=== PATIENT | female | born 1950 | race Caucasian/White ===

== ENCOUNTER 2017-11-03 08:15 | Emergency (ER) | payer OTHER, SELFPAY ==
[2017-11-03 08:17] VITALS: BP 161/122; PULSE 91; RESP 16; TEMP 37.1; O2SAT 95; BMI 29.5
--- NOTE | 2017-11-03 08:27 | CT_ITS ---
STUDY: CT ABDOMEN AND PELVIS WITHOUT CONTRAST REASON FOR EXAM: Female, 67 years old. 3 day history of right-sided abdominal pain with nausea and constipation. RADIATION DOSAGE (If Supplied By Facility): CTDIvol = ( 14.14 ) mGy, DLP = ( 681.78 ) mGycm TECHNIQUE: Transaxial images were obtained from the dome of the diaphragm to the symphysis pubis without oral contrast, and without intravenous contrast. Sagittal and coronal images were reconstructed. Individualized dose optimization techniques were used for this CT. COMPARISON: None. FINDINGS: The visualized lung bases are unremarkable. The visualized portions of the heart are within normal limits. There is a 1.1 cm cyst in the left lobe of the liver. 1 cm cyst is seen along the inferior lateral portion of the right lobe of the liver. Increased density is seen within the gallbladder lumen suggestive of a sludge or small gallstones. Normal spleen. Normal pancreas. There is a small, circumscribed, smooth, low attenuation left adrenal mass, consistent with an adrenal adenoma. Normal right adrenal gland. Normal right kidney. Normal left kidney. Normal visualized stomach. Normal small intestine. There are multiple colonic diverticula consistent with diverticulosis. The appendix is visualized and appears normal. There is diffuse atherosclerotic calcification of the abdominal aorta, without a demonstrated aneurysm. Normal inferior vena cava. Normal retroperitoneum. Normal urinary bladder. There is evidence of a bilateral tubal ligation. Normal abdominal wall. There are mild degenerative changes of the visualized lumbar spine. CT/Abdomen/Pelvis without Cont IMPRESSION: Findings suggestive of sludge or several small gallstones along the dependent portion of the gallbladder lumen. Electronically Signed: Humberto Palma MD at 9:45 EDT Tel [phone], Service support ,
--- NOTE | 2017-11-03 08:28 | EKG12_ITS ---
Test Reason : ABD PAIN Blood Pressure : / mmHG Vent. Rate : 096 BPM Atrial Rate : 192 BPM P-R Int : 000 ms QRS Dur : 070 ms QT Int : 350 ms P-R-T Axes : 000 001 -54 degrees QTc Int : 442 ms Atrial fibrillation Nonspecific ST and T wave abnormality Abnormal ECG Confirmed by PATEL HIGGINBOTHAM ([id number]), news video editor XIMENA WOOD ([id number]) on 11/07/2017 1:49:02 PM Referred By: JEANNE Confirmed By:PATEL HIGGINBOTHAM
[2017-11-03] MEDS: 0.9% Normal Saline 1,000 ML 125 ML IV (08:44)
[2017-11-03] MEDS: Ondansetron 4 MG/2 ML Vial IV (08:44)
[2017-11-03 08:58] LABS: Absolute Lymphocyte Count 2.22 X10^3/ul (0.83-4.51); Absolute Neutrophil Count 6.5 X10^3/uL (2.0-7.7); Basophil# 0.02 X10^3/uL; Basophil% 0.2 % (0-1); Eosinophil# 0.06 X10^3/uL; Eosinophils% 0.6 % (0-5); Hematocrit 49.8 % (37-47); Hemoglobin 17.2 g/dl (12.0-15.0); Lymphocyte # 2.22 X10^3/ul (4.0); Lymphocyte % 22.8 % (19-41); Mean Corp Hgb Conc 34.5 g/gl (32-36); Mean Corpuscular Hgb 32.3 pg (27.0-32.0); Mean Corpuscular Volume 93.4 fL (81-99); Mean Platelet Vol. 9.8 fl (6.2-12.0); Monocyte# 0.86 X10^3/uL; Monocyte% 8.8 % (0-10); Neutrophil # 6.53 X10^3/uL (2.7-7.7); Neutrophil % 67.3 % (47-70); Platelet Count 216 K/mm3 (150-450); RBC Distribution Width SD 47.2 fl (35.1-43.9); Red Blood Count 5.33 M/mm3 (4.2-5.4); White Blood Count 9.7 K/mm3 (4.4-11.0)
[2017-11-03 09:08] LABS: POSITIVE COUNT NO; POSITIVE DIFFERENTIAL NO; POSITIVE MORPHOLOGY NO
[2017-11-03 09:19] LABS: ALB/GLOB Ratio 1.2 RATIO (0.9-2.4); AST(SGOT) 11 U/L (15-37); Alanine Aminotransfer ALT/SGPT 15 U/L (13-56); Albumin, Serum 4.2 g/dL (3.2-5.0); Alkaline Phosphatase 95 U/L (45-117); Anion Gap 11 (5-15); BUN 15 mg/dL (7-18); BUN/Creat Ratio 17.2 RATIO (10-20); Calcium,Total 9.6 mg/dL (8.5-10.1); Chloride 104 mmol/L (98-107); Creatinine, Serum 0.87 mg/dL (0.55-1.02); EST Glomerular Filtration Rate 69 mL/min (>60); Est Glom Filt Rate - Afr Amer 84 mL/min (>60); Estimated Creatinine Clearance 59.55 ml/min; Globulin 3.4 g/dL (2.2-4.2); Glucose 102 mg/dL (74-106); Lipase 64 U/L (73-393); Potassium 3.6 mmol/L (3.5-5.1); Protein, Total 7.6 g/dL (6.4-8.2); Sodium Level 139 mmol/L (136-145)
[2017-11-03 09:22] LABS: Lactic Acid 1.7 mmol/L (0.4-2.0)
[2017-11-03 09:47] LABS: Bacteria 0 SEEN /hpf (None Seen); Mucous, Urine 0 SEEN /hpf (<or=2+); White Blood Cells 0 SEEN /hpf (0-5)
[2017-11-03 09:52] LABS: Color, Urine Yellow (Yellow); Glucose, Dipstick Normal (Normal); Ketone-Dipstick 15 mg/dl (Negative); Leukocyte Esterase-Dipstick Negative /ul (Negative); Nitrite-Dipstick Negative (Negative); Occult Blood-Urine 10 /ul (Negative); Protein-Dipstick 15 mg/dl (Negative); Specific Gravity, Urine 1.015 (1.002-1.030); Urine Bilirubin Dipstick Negative (Negative); Urine Clarity Sl. Cloudy (Clear); Urine Urobilinogen Normal (Normal)
[2017-11-03 10:00] LABS: Red Blood Cells-Urine 0-5 SEEN /hpf (0-5); Squamous Epithelial Cells - UA 0-5 SEEN /hpf (5-10)
--- NOTE | 2017-11-03 10:30 | ED.DCSUM_ITS ---
- ER Visit Summary Date of Service: 11/03/17 Chief Complaint: [Abdominal pain] History of Present Illness: The patient is a 67 F [presents to the emergency department chief complaint of abdominal pain ?4 days. Patient states that discomforts been continuous and currently rates it about a 5 out of 10. Patient had some mild nausea today but no vomiting. Patient states she has not had a bowel movement in about a week. Patient denies any fevers. She denies any blood in her stool or black tarry stool. Patient denies any urinary symptoms. Patient states that at times feels like the pain is in her back.] Physical Examination: [HEENT-PERRLA, EOMI. Cranial nerves II through XII grossly intact. TMs clear. Mucous membranes moist. No adenopathy. Cardiovascular-regular rate and rhythm without murmur or ectopy Lungs-clear to auscultation, chest wall stable without crepitus or subcu emphysema Abdomen-normoactive bowel sounds, soft. Minimal discomfort to the right side of the abdomen. There is no rebound, rigidity, or peritoneal signs. Patient has a negative Duncan sign. Extremities-intact ?4, normal range of motion, normal pulses, atraumatic] Test Results: [CBC with differential obtained showed a white count of 9.7, heme globin 17, hematocrit 50, platelets 216. Chemistries were normal. Liver enzymes were normal. Lipase was normal. Urinalysis was unremarkable. Troponin was less than 0.02. EKG obtained showed atrial fibrillation with a ventricular rate of [address] scan of the abdomen pelvis showed sludge in the gallbladder and an adrenal adenoma otherwise nothing acute.] She had noted sludge in the gallbladder and possible gallstones but no other signs of cholecystitis. Given the patient is not tender in the right upper quadrant I do not feel she has cholecystitis. Emergency Department Course and Treatment: [Patient was medicated with morphine and Zofran.]. Treatment Plan: [Patient will be given a prescription for Bentyl and magnesium citrate.] Patient advised to follow-up with her primary care physician regarding her A. fib. Patient states that she is well aware of her atrial fibrillation and risk of stroke potentially and has been without any medications to treat this. Patient is advised to speak with her primary care physician more regarding this. Disposition: [Discharged to home in stable condition]. Patient advised to return if worsening pain, fever, vomiting, or condition should worsen in any way. Impression: [Abdominal pain-etiology uncertain Constipation] This note was generated with [employer] dictation software. It may contain incorrect words, spelling, and punctuation that were not noted in review of the chart prior to signing ED Disposition - Plan for ED Patient: Chief Complaint: Abd Pain Referrals: Vladimir Gómez MD [Primary Care Provider] -
--- NOTE | 2017-11-03 10:30 | ED.DEP ---
ED Disposition - Plan for ED Patient: Chief Complaint: Abd Pain Instructions: ED Abdominal Pain Unkn Cause, ED Constipation Prescriptions: Dicyclomine HCl [Bentyl] 20 mg PO TIDAC #20 cap Referrals: Vladimir Gómez MD [Primary Care Provider] - 3-5 Days
[2017-11-03 10:32] VITALS: BP 178/106; PULSE 87; RESP 12; O2SAT 97
[2017-11-03] MEDS: Magnesium Citrate 300 ML PO (10:39)
--- NOTE | 2017-11-03 10:40 | ED.RN ---
DR ANGEL AWARE OF PT BP. OKAY TO CONTINUE WITH D/C. THIS NURSE REVIEWED D/C INSTRUCTIONS WITH PT. PT VERBALIZED UNDERSTANDING OF INSTRUCTIONS. IV D/C. IV CATHETER INTACT. PT TOLERATED WELL. PT DENIES FURTHER NEEDS OR QUESTIONS AT THIS TIME.
== END 2017-11-03 10:41 | disposition home or self-care (01) ==
PROVIDERS: Emergency Provider Emergency Medicine; Family Provider Family Medicine; PCP Family Medicine
DX: R10.9 Unspecified abdominal pain (principal); K59.00 Constipation, unspecified; I48.91 Unspecified atrial fibrillation; I10 Essential (primary) hypertension; K82.9 Disease of gallbladder, unspecified; D35.00 Benign neoplasm of unspecified adrenal gland; Z72.0 Tobacco use
CPT/HCPCS: 74176; 80053; 81001; 83605; 83690; 84484; 85025; 93005; 96361; 96374; 96375; 99283; J7030; A4216; J2405

== ENCOUNTER 2017-12-19 08:58 | Inpatient (IN) | payer OTHER, SELFPAY ==
[2017-12-19] VITALS (14 sets, daily range): BP systolic 137–197; BP diastolic 77–112; PULSE 65–93; RESP 11–19; TEMP 36.4–37.1; O2SAT 95–99; BMI 30.1; BMI 30.3
[2017-12-19 09:06] LABS: Bedside Glucose 102 mg/dL (70-110)
--- NOTE | 2017-12-19 09:14 | EKG12_ITS ---
Test Reason : NEURO S/SX Blood Pressure : / mmHG Vent. Rate : 089 BPM Atrial Rate : 117 BPM P-R Int : 000 ms QRS Dur : 072 ms QT Int : 378 ms P-R-T Axes : 000 008 -08 degrees QTc Int : 459 ms Atrial fibrillation Abnormal ECG Confirmed by [place] ARSHAD, SHEA ([id number]), features editor XIMENA WOOD ([id number]) on 12/21/2017 9:03:37 AM Referred By: OSVALDO Confirmed By:SHEA BERNARDO MD
--- NOTE | 2017-12-19 09:14 | CT_ITS ---
STUDY: CT BRAIN WITHOUT CONTRAST REASON FOR EXAM: Female, 67 years old. Right arm numbness since this morning RADIATION DOSAGE (If Supplied By Facility): CTDIvol = ( 44.99 ) mGy, DLP = ( 745.49 ) mGycm TECHNIQUE: Transaxial CT imaging of the brain was performed without administration of intravenous contrast material. Individualized dose optimization techniques were used for this CT. COMPARISON: None. FINDINGS: Normal soft tissue structures. Normal calvarium. There is mild cerebral atrophy with widening of the extra-axial spaces and ventricular dilatation. Normal white matter tracts of the cerebral hemispheres. Normal basal ganglia and thalami. Normal brainstem. Normal cerebellum. There is no intracranial hemorrhage. There are no findings of an acute ischemic infarction. There is mucoperiosteal inflammatory disease of the paranasal sinuses consistent with mild chronic sinusitis. CT/Brain/Head without Contrast IMPRESSION: Chronic involutional changes of the brain. No acute hemorrhage Paranasal sinusitis Electronically Signed: Abad Templeton MD at 9:48 EDT , Service support ,
[2017-12-19 09:23] LABS: Basophil# 0.04 X10^3/uL; Basophil% 0.4 % (0-1); Eosinophil# 0.23 X10^3/uL; Eosinophils% 2.5 % (0-5); Hematocrit 44.6 % (37-47); Hemoglobin 15.1 g/dl (12.0-15.0); Lymphocyte % 20.9 % (19-41); Mean Corp Hgb Conc 33.9 g/gl (32-36); Mean Corpuscular Hgb 32.8 pg (27.0-32.0); Mean Corpuscular Volume 96.7 fL (81-99); Mean Platelet Vol. 9.6 fl (6.2-12.0); Monocyte% 9.9 % (0-10); Neutrophil # 5.97 X10^3/uL (2.7-7.7); Neutrophil % 65.9 % (47-70); Platelet Count 240 K/mm3 (150-450); RBC Distribution Width CV 14.4 % (11.6-14.6); RBC Distribution Width SD 50.1 fl (35.1-43.9); Red Blood Count 4.61 M/mm3 (4.2-5.4); White Blood Count 9.1 K/mm3 (4.4-11.0)
[2017-12-19 09:24] LABS: POSITIVE COUNT NO; POSITIVE DIFFERENTIAL NO; POSITIVE MORPHOLOGY NO
--- NOTE | 2017-12-19 09:28 | RAD_ITS ---
STUDY: X-RAY CHEST REASON FOR EXAM: Female, 67 years old. Right arm numbness TECHNIQUE: Single AP portable view of the chest. COMPARISON: None. FINDINGS: Cardiac monitoring leads overlie the chest. The lungs are clear and expanded. There is no demonstrated pleural abnormality. Normal size heart. Normal mediastinum and marsha. Normal visualized pulmonary arteries. There is atherosclerotic tortuosity of the aortic arch and descending thoracic aorta. Normal visualized thoracic spine. Normal visualized ribs, clavicles, and shoulders. There is no demonstrated abnormality of the visualized soft tissue structures of the upper abdomen. RAD/Chest 1 View IMPRESSION: Normal x-ray examination of the chest. Electronically Signed: Derek Paige DO at 9:48 EDT Tel , Service support ,
[2017-12-19 09:40] LABS: Partial Thromboplast Time 34.5 Seconds (24.1-36.2)
[2017-12-19 09:47] LABS: Anion Gap 5 (5-15); BUN 13 mg/dL (7-18); BUN/Creat Ratio 14.5 RATIO (10-20); Calcium,Total 8.5 mg/dL (8.5-10.1); Chloride 108 mmol/L (98-107); EST Glomerular Filtration Rate 67 mL/min (>60); Est Glom Filt Rate - Afr Amer 81 mL/min (>60); Estimated Creatinine Clearance 59.79 ml/min; Glucose 96 mg/dL (74-106); Potassium 3.8 mmol/L (3.5-5.1); Sodium Level 141 mmol/L (136-145)
--- NOTE | 2017-12-19 10:19 | PCM.HP.STD ---
Problem List (1) Right upper extremity numbness Status: Acute (2) Chronic atrial fibrillation Status: Chronic History of Present Illness Date of Admission: 12/19/17 Chief Complaint: Right-sided upper extremity numbness and weakness- 1day The patient is a 67 year old F with PMHx of atrial fibrillation, was on Coumadin but took off of it( she was following with Dr. Cohn), hypertension who comes in with complaints of sudden onset of right-sided numbness and weakness which started today. Patient was in a usual state of health until this morning when she went away, started headaches and attempted to take something for headaches when she noticed that she has sudden onset right-sided weakness with numbness. She denied any dizziness or palpitation no nausea or vomiting or diaphoresis. Patient was very anxious and tearful at time of history taking. She denied any chest pain or leg swelling. Vitals in the ED was stable for uncontrolled blood pressure; 195/112. Admitting blood work was unremarkable. 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 Dyspnea Respiratory: Denies: Cough, Hemoptysis, Shortness of breath at rest, Shortness of breath upon exertion, Sputum production Gastrointestinal: Denies: Abdominal Pain, Hematemesis, Hematochezia, Nausea, Vomiting Genitourinary: Denies: Dysuria, Frequency Gynecological: Denies: Breast symptoms, Excessively long or heavy periods Musculoskeletal: Denies: Joint Pain, Joint stiffness, Joint swelling, Joint Tenderness Skin: Denies: Rash, Wounds Neurological: Reports: Focal weakness, Numbness, Tingling Psychiatric: Denies: Anxiety, Depression, Homicidal Ideations, Suicidal Ideations Endocrine: Denies: Change in Body Habitus, Heat/ Cold Intolerance Hematologic/ Lymphatic: Denies: Easy Bruising, Easy Bleeding VTE Information - Inpt Only VTE Present on Admission: No VTE Pharm Prophylaxis ordered?: Yes Patient Problems: Active and Suspected Problems Right upper extremity numbness (Acute) - Physical Exam General: Alert, Oriented x3, Cooperative HEENT: Atraumatic, PERRLA, EOMI, Normocephalic Neck: Supple, No JVD, Negative Carotid Bruits Lungs: Clear to auscultation, Normal air movement Cardiovascular: Regular rate, No murmurs Abdomen: Bowel Sounds Present, Soft, Non Tender Extremities: No edema, Capillary Refill Less than 3 Seconds Skin: No rashes, No breakdown Musculoskeletal: No Tenderness to Palpation of Joints or Extremities Neurological: Cranial nerves II-XII grossly intact Psych/Mental Status: Normal Affect, Appropriate Vital Signs Temp Pulse Resp BP Pulse Ox 97.6 F L 78 11 L 165/100 H 96 12/19/17 08:59 12/19/17 10:16 12/19/17 10:16 12/19/17 10:16 12/19/17 10:16 Oxygen Delivery Method Room Air Weight: 87.1 kg Body Mass Index (BMI) 30.0 Finger Stick Blood Glucose 102 Laboratory Tests Past 24 Hrs 12/19/17 12/19/17 12/19/17 09:10 09:10 09:10 WBC 9.1 RBC 4.61 Hgb 15.1 H Hct 44.6 MCV 96.7 MCH 32.8 H MCHC 33.9 RDW 14.4 RDW Differential 50.1 H Plt Count 240 MPV 9.6 Immature Gran % (Auto) 0.400 Neut % (Auto) 65.9 Lymph % (Auto) 20.9 [place] % (Auto) 9.9 Eos % (Auto) 2.5 Baso % (Auto) 0.4 Absolute Neuts (auto) 6.0 Absolute Lymphs (auto) 1.90 Total Counted Not Reportable PT 13.0 INR 1.0 APTT 34.5 Sodium 141 Potassium 3.8 Chloride 108 H Carbon Dioxide 28.0 Anion Gap 5 BUN 13 Creatinine 0.90 Estim Creat Clear Calc 59.79 Est GFR (MDRD) Af Amer 81 Est GFR (MDRD) Non-Af 67 BUN/Creatinine Ratio 14.5 Glucose 96 Calcium 8.5 Troponin I < 0.02 POC Glucose 12/19/17 09:01 POC Glucose 102 Assessment/Plan Active and Suspected Problems Right upper extremity numbness (Acute) 67 year old F with PMHx of chronic atrial fibrillation, was on Coumadin but took off of it, hypertension who comes in with complaints of sudden onset of right-sided numbness and weakness which started today. 1. Right-sided extremity weakness and numbness, concerning for possible TIAs/CVA, history of chronic atrial fibrillation, on any medication Plan: Admit to PCU, observation, neurology consult, aspirin 81 mg p.o. daily, 2D echo, MRI of the brain, MRA of the head and neck, fasting lipid profile, HbA1c 2. Chronic A. fib, CHADS-VASC2 score of 3, rate-controlled, not on any medications, will start on Lovenox therapeutic dosing, 2D echo, if there is no valvular abnormalities, will put patient on Eliquis and arrange for follow-up with cardiology. 3. Hypertension, blood pressures now controlled, will allow permissive hypertension until MRI results in detail control with beta-violeta and/or ACEI. 4. DVT prophylaxis with Lovenox subcu Code Visit OBSV E&M: 35199 Initial observation care L3
--- NOTE | 2017-12-19 10:20 | ED.VISSUMM ---
- ER Visit Summary Date of Service: 12/19/17 Chief Complaint: Right arm weakness and numbness History of Present Illness: The patient is a 61 F who reports right arm weakness and numbness. Symptoms began 1 hour prior to presentation. She states that her right arm felt numb and she was unable to lift it normally. No history of prior similar symptoms. No weakness or paresthesias in the other extremities and no speech or visual changes. She denies any recent illness. She does have a history of atrial fibrillation and was previously anticoagulated but is noncompliant with medications. Physical Examination: Initial blood pressure 197/106 vitals otherwise unremarkable NIH stroke scale is 0 she has normal strength and sensation no ataxia no focal or lateralizing neurological deficits at the time of my examination Heart is irregularly irregular but normal rate Lungs are clear Abdomen soft Alert and oriented Test Results: EKG shows atrial fibrillation at a rate of 89. CT of the head shows chronic changes. Chest x-ray is normal. CBC BMP coagulation studies and troponin all unremarkable. Emergency Department Course and Treatment: Patient's NIH stroke scale was 0. She continues to complain of some paresthesias in the right arm but has normal sensation light touch. She was discussed with the hospitalist and will be admitted for further workup. Treatment Plan: [] Disposition: Admit Impression: Transient ischemic attack Atrial fibrillation This note was generated with [employer] dictation software. It may contain incorrect words, spelling, and punctuation that were not noted in review of the chart prior to signing ED Disposition - Plan for ED Patient: Chief Complaint: Neuro S/Sx Referrals: Vladimir Gómez MD [Primary Care Provider] -
--- NOTE | 2017-12-19 10:56 | MRI_ITS ---
STUDY: MRA NECK WITHOUT CONTRAST REASON FOR EXAM: Female, 67 years old. Numbness and tingling right arm TECHNIQUE: Source images were obtained, MIPs were performed. The study was performed unenhanced. Motion limited exam. COMPARISON: None. FINDINGS: RIGHT CAROTID ARTERIES: Normal right common carotid artery (CCA). Normal right common carotid bulb. There is moderate atherosclerotic plaque formation of the origin of the right internal carotid artery with an estimated stenosis of 50-69% stenosis. Normal visualized cervical portion of the right internal carotid artery. Normal origin of the right external carotid artery (ECA). LEFT CAROTID ARTERIES: Normal left common carotid artery (CCA). Normal left common carotid bulb. Normal origin of the left internal carotid (ICA) artery without a hemodynamically significant stenosis. Normal visualized cervical portion of the left internal carotid artery. Normal origin of the left external carotid artery (ECA). VERTEBRAL ARTERIES: Normal antegrade flow within the bilateral vertebral artery without a hemodynamically significant stenosis. IMPRESSION: Motion limited exam. Probable moderate stenosis proximal right ICA. Flow defects noted within the bulbs bilaterally. Follow-up CTA would be helpful. Electronically Signed: Truman Peralta MD at 16:12 EDT , Service support , MRI/MRA Neck without Contrast
--- NOTE | 2017-12-19 10:56 | MRI_ITS ---
STUDY: MRI BRAIN WITHOUT CONTRAST REASON FOR EXAM: Female, 67 years old. Numbness tingling right arm TECHNIQUE: Standardized multiplanar fat and water weighted pulse sequences were obtained. COMPARISON: CT brain December 19, 2017 FINDINGS: There is mild cerebral atrophy with widening of the extra-axial spaces and ventricular dilatation. There are a limited number of small white matter hyperintensities, distributed throughout the deep white matter tracts of the cerebral hemispheres, consistent with mild chronic white matter ischemic changes. Gyriform cytotoxic edema left parietal cortex. Remote lacunar infarct left putamen. Normal thalami. There is no extra-axial fluid accumulation. Normal flow voids within the major intracranial circulation suggesting patency by spin echo criteria. There is enlargement of the sella turcica with increased CSF within the sella and flattening of the pituitary gland consistent with an empty sellar syndrome. Normal infundibular stalk, hypothalamus, and optic chiasm. Normal tectal plate and pineal gland. Normal midbrain, jigar and medulla. Normal cerebellum. Normal basal cisterns. Normal bilateral temporal bones. Normal bilateral internal auditory canals. No demonstrated orbital abnormality, within the constraints of a routine brain study. Air-fluid level right maxillary sinus and mucosal thickening on the left. Normal calvarium and skull base. Normal visualized soft tissue structures. Normal visualized upper cervical spine. MRI/Brain without Contrast IMPRESSION: Acute infarct left parietal lobe Electronically Signed: Truman Peralta MD at 19:13 EDT , Service support ,
--- NOTE | 2017-12-19 10:56 | MRI_ITS ---
STUDY: MRA OF THE HEAD WITHOUT CONTRAST REASON FOR EXAM: Female, 67 years old. CVA and numbness right arm TECHNIQUE: 3-D [id number] (TOF) imaging was performed with MIPs. The study was performed unenhanced. Motion limited exam. COMPARISON: MR brain December 19, 2017 FINDINGS: Normal bilateral petrous carotid arteries. Normal right cavernous carotid artery with a normal supraclinoid bifurcation. Normal left cavernous carotid artery with a normal supraclinoid bifurcation. Normal right A1 segments of the anterior cerebral artery. Normal left A1 segments of the anterior cerebral artery. Normal intact anterior communicating artery (ACOM). Normal bilateral A2 segments of the anterior cerebral arteries. Normal right M1 and M2 segments of the middle cerebral arteries, with a normal M1 bifurcation. Normal left M1 and M2 segments of the middle cerebral arteries, with a normal M1 bifurcation. Normal right posterior communicating artery (PCOM). Normal left posterior communicating artery (PCOM). Normal bilateral vertebral arteries. Normal basilar artery with a normal basilar bifurcation. The visualized bilateral superior cerebellar (SCA) arteries are normal. Normal bilateral P1, P2 and visualized P3 segments of the posterior cerebral arteries. There is no demonstrated aneurysm of the [place]. There is no major vessel occlusion or hemodynamically significant stenosis. There is no demonstrated abnormality of the visualized brain. IMPRESSION: Motion limited exam but grossly Normal MRA of the head Electronically Signed: Truman Peralta MD at 19:21 EDT , Service support , MRI/MRA Head ONLY without Contrast
--- NOTE | 2017-12-19 12:21 | ECHOD_ITS ---
Reason For Study: AFIB/FLUTTER Procedure This was a 2D Doppler, Color Flow transthoracic echocardiogram. The exam was of adequate technical quality. Exam performed portable in patient room. Left Ventricle Normal LV size. Left ventricular systolic function is normal. The estimated ejection fraction is 65 %. Unable to assess diastolic dysfunction. No regional wall motion abnormalities noted. Right Ventricle Normal RV size. Normal systolic function. Atria The left atrium is severely enlarged. Normal right atrium. No doppler evidence for ASD. Mitral Valve There is no mitral annular calcification. Normal mitral valve. Mild (1+) mitral valve insufficiency. Tricuspid Valve Normal tricuspid valve. Mild tricuspid valve insufficiency. Right ventricular systolic pressure estimated to be 22 mmHg. Aortic Valve Trisinus/trileaflet aortic valve. Normal aortic valve. Pulmonic Valve The pulmonic valve is not well visualized. Trivial pulmonic valve insufficiency. Great Vessels Normal sized aortic root. Pericardium/Pleural No pericardial effusion. MMode/2D Measurements & Calculations LVIDd: 4.7 cm IVSd: 1.3 cm Ao root diam: 3.3 cm LVIDs: 3.4 cm LVPWd: 1.0 cm LA dimension: 3.7 cm RVDd: 3.0 cm FS: 27.9 % LAV(MOD-bp): 115.8 ml LA A4 area: 32.1 cm2 RA A4 area: 18.3 cm2 LAV(MOD-bp) Indexed: 59.6 ml/m2 LAV(MOD-sp2): 100.7 ml LAV(MOD-sp4): 126.1 ml Doppler Measurements & Calculations MV E max angelo: 85.8 cm/sec Ao V2 max: 124.5 cm/sec LV V1 max: 81.1 cm/sec Ao max P.2 mmHg LV V1 max P.6 mmHg PA V2 max: 60.4 cm/sec TR max angelo: 216.0 cm/sec TR max P.8 mmHg Interpretation Summary Left ventricular systolic function is normal. The estimated ejection fraction is 65 %. The left atrium is severely enlarged. Mild (1+) mitral valve insufficiency. Mild tricuspid valve insufficiency. Trivial pulmonic valve insufficiency. Right ventricular systolic pressure estimated to be 22 mmHg. Ordering Physician: Shena Adkins Referring Physician: Vladimir Gómez Performed By: Maria Luz Red, CARLOS, RVT
[2017-12-19 13:14] LABS: Hemoglobin A1c 5.6 % (4.2-6.3)
[2017-12-19] MEDS: Enoxaparin 100 MG/ML Syringe 90 MG SC ×2 (13:50→21:37)
[2017-12-19] MEDS: LORazepam 2 MG/ML Syringe 1 MG IV (15:53)
[2017-12-19] MEDS: Atorvastatin Calcium 40 MG Tablet PO (21:37)
[2017-12-20] VITALS (7 sets, daily range): BP systolic 159–162; BP diastolic 90–102; PULSE 59–87; RESP 16; TEMP 36.3–37.1; O2SAT 96–97; BMI 30.3
[2017-12-20 06:28] LABS: Hematocrit 43.1 % (37-47); Hemoglobin 14.7 g/dl (12.0-15.0); Mean Corp Hgb Conc 34.1 g/gl (32-36); Mean Corpuscular Hgb 32.6 pg (27.0-32.0); Mean Corpuscular Volume 95.6 fL (81-99); Platelet Count 225 K/mm3 (150-450); RBC Distribution Width CV 14.3 % (11.6-14.6); RBC Distribution Width SD 48.4 fl (35.1-43.9); Red Blood Count 4.51 M/mm3 (4.2-5.4); Scan Indicated on CBC? Y/N NO; White Blood Count 7.6 K/mm3 (4.4-11.0)
[2017-12-20 06:58] LABS: Anion Gap 8 (5-15); BUN 13 mg/dL (7-18); BUN/Creat Ratio 18.5 RATIO (10-20); Calcium,Total 8.4 mg/dL (8.5-10.1); Chloride 111 mmol/L (98-107); Cholesterol 179 mg/dL (200); EST Glomerular Filtration Rate 89 mL/min (>60); Est Glom Filt Rate - Afr Amer 107 mL/min (>60); Estimated Creatinine Clearance 51.81 ml/min; Glucose 88 mg/dL (74-106); High Density Lipoprotein 46 mg/dL; Potassium 3.5 mmol/L (3.5-5.1); Sodium Level 144 mmol/L (136-145); Triglycerides 75 mg/dL; Very Low Density Lipoprotein 15 mg/dL (5-40)
[2017-12-20] MEDS: Enoxaparin 100 MG/ML Syringe 90 MG SC (09:15)
[2017-12-20] MEDS: Aspirin 81 MG TAB.CHEW PO (09:15)
--- NOTE | 2017-12-20 10:59 | CASEMGMT ---
Face to Face with patient for initial transition planning/care coordination assessment. ELBERT GHOSH introduced self and role at [facility], pt voices understanding and consents to assessment at this time. Pt is sitting up in chair in no distress at this time. Pt is A/O x4 at this time and answers all questions appropriately at this time. Pt with very flat affect at this time and seems frustrated/angry. Referral to L[facility] FRANC[facility] at this time, voices understanding. Care providers, pharmacy, and demographics verified. See attached link. Pt voices no further concerns/needs at this time. Advised pt to ask for CM if any further questions/concerns/needs arise, voices understanding. CM to follow for any further discharge planning/needs. PLAN[place] ELBERT GHOSH
--- NOTE | 2017-12-20 11:11 | PCM.CONS.GEN ---
Reason for Consult Date of Consultation: 12/20/17 Reason for Consultation: right sided weakness History of Present Illness: The patient is a 67 year old right handed white female with history of afib, not on anticoagulation because she says they were inconvenient, approx 5-10 yrs ago, no history of bleeding. yesterday at 8 am she noticed right arm weakness and numbness, so she asked her to bring her to the hospital. no other weakness, no trouble with speech, vision, or swallowing. +tob. no asa. 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 pre admit h&p:The patient is a 67 year old F with PMHx of atrial fibrillation, was on Coumadin but took off of it( she was following with Dr. Cohn), hypertension who comes in with complaints of sudden onset of right-sided numbness and weakness which started today. Patient was in a usual state of health until this morning when she went away, started headaches and attempted to take something for headaches when she noticed that she has sudden onset right-sided weakness with numbness. She denied any dizziness or palpitation no nausea or vomiting or diaphoresis. Patient was very anxious and tearful at time of history taking. She denied any chest pain or leg swelling. Vitals in the ED was stable for uncontrolled blood pressure; 195/112. Admitting blood work was unremarkable. 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 Lives: Alone Smoking Status: Current every day smoker Tobacco Use: Cigarettes Alcohol: Occasional Drugs: None - *Family History Maternal History Items: Heart Disease Paternal History Items: No pertinent history Review of Systems Constitutional: Denies: Chills, Fever, Weight Change HEENT: Denies: Head Aches, Sinus Congestion, Sinus Drainage Cardiovascular: Denies: Chest Pain, Palpitations Respiratory: Denies: Cough, Shortness of breath at rest, Sputum production Gastrointestinal: Denies: Abdominal Pain, Nausea, Vomiting Genitourinary: Denies: Dysuria Musculoskeletal: Denies: Joint Pain, Joint Tenderness Skin: Denies: Rash, Wounds Neurological: Denies: Numbness, Tingling, Focal weakness Psychiatric: Denies: Anxiety, Depression, Homicidal Ideations, Suicidal Ideations Hematologic/ Lymphatic: Denies: Easy Bruising, Easy Bleeding Patient Problems: Active and Suspected Problems Right upper extremity numbness (Acute) - Physical Exam General: Alert, Oriented x3, Cooperative HEENT: Atraumatic, PERRLA, EOMI, Normocephalic Neck: Supple, No JVD, Negative Carotid Bruits Lungs: Clear to auscultation, Normal air movement Cardiovascular: Regular rate, No murmurs Abdomen: Bowel Sounds Present, Soft, Non Tender Extremities: No edema, Capillary Refill Less than 3 Seconds Skin: No rashes, No breakdown Musculoskeletal: No Tenderness to Palpation of Joints or Extremities Neurological: Cranial nerves II-XII grossly intact Psych/Mental Status: Normal Affect, Appropriate Vital Signs Temp Pulse Resp BP Pulse Ox 36.3 C L 70 16 161/98 H 96 12/20/17 09:18 12/20/17 09:18 12/20/17 09:18 12/20/17 09:18 12/20/17 09:18 Oxygen Delivery Method Room Air Weight: 85.2 kg Body Mass Index (BMI) 30.3 Intake and Output for Last 24 Hours 12/18/17 12/19/17 12/20/17 23:59 23:59 23:59 Intake Total 300 / 300 200 / 200 Balance 300 / 300 200 / 200 Laboratory Tests Past 24 Hrs 12/20/17 12/20/17 05:55 05:55 WBC 7.6 RBC 4.51 Hgb 14.7 Hct 43.1 MCV 95.6 MCH 32.6 H MCHC 34.1 RDW 14.3 RDW Differential 48.4 H Plt Count 225 MPV 10.0 Sodium 144 Potassium 3.5 Chloride 111 H Carbon Dioxide 25.0 Anion Gap 8 BUN 13 Creatinine 0.70 Estim Creat Clear Calc 51.81 Est GFR (MDRD) Af Amer 107 Est GFR (MDRD) Non-Af 89 BUN/Creatinine Ratio 18.5 Glucose 88 Calcium 8.4 L Triglycerides 75 Cholesterol 179 LDL Cholesterol 118 VLDL Cholesterol 15 HDL Cholesterol 46 Current Medications Generic Name Dose Route Start Last Admin Trade Name Freq PRN Reason Stop Dose Admin Aspirin 81 mg 12/20/17 08:00 12/20/17 09:15 Aspirin, Baby PO 81 mg DAILY@0800 LORI Administration Atorvastatin Calcium 40 mg 12/19/17 22:00 12/19/17 21:37 Lipitor PO 40 mg QHS LORI Administration Bisacodyl 5 mg 12/19/17 10:56 Dulcolax PO DAILY PRN PRN Constipation Enoxaparin Sodium 40 mg 12/20/17 10:00 Lovenox SC DAILY@1000 LORI Enoxaparin Sodium 90 mg 12/19/17 13:00 12/20/17 09:15 Lovenox SC 90 mg Q12 LORI Administration Magnesium Hydroxide 30 ml 12/19/17 10:56 Milk Of Magnesia PO DAILY PRN Constipation Metoprolol Succinate 12.5 mg 12/20/17 12:00 Toprol Xl (Beta Jean) PO DAILY LORI Nicotine 21 mg 12/20/17 10:00 12/20/17 09:15 Nicoderm Cq (Pbkc) TRANSDERM. Not Given DAILY [facility] Nicotine Polacrilex 2 mg 12/19/17 16:07 Rugby Nicotine (Bkc) PO Q2H PRN PRN Nicotine Craving Ondansetron HCl 4 mg 12/19/17 10:56 Zofran IV Q8H PRN PRN NAUSEA Psyllium Hydrophilic Mucilloid 1 packet 12/19/17 10:56 Metamucil PO DAILY PRN PRN CONSTIPATION Sodium Chloride 5 - 30 ml 12/19/17 12:11 IV UD PRN SALINE FLUSH mri brain reviewed, acute infarct in posterior aspect of left mca distribution. no significant stenosis on mra Assessment/Plan Active and Suspected Problems Right upper extremity numbness (Acute) acute left mca infarct, chronic afib not on anticoag recently per pt preference restart oac, eliquis dc tob monitor bp, rx as op if remains hi outpt psg
--- NOTE | 2017-12-20 11:22 | CON.PCM_ITS ---
Reason for Consult Date of Consultation: 12/20/17 Reason for Consultation: right sided weakness History of Present Illness: The patient is a 67 year old right handed white female with history of afib, not on anticoagulation because she says they were inconvenient, approx 5-10 yrs ago, no history of bleeding. yesterday at 8 am she noticed right arm weakness and numbness, so she asked her to bring her to the hospital. no other weakness, no trouble with speech, vision, or swallowing. +tob. no asa. 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 pre admit h&p:The patient is a 67 year old F with PMHx of atrial fibrillation, was on Coumadin but took off of it( she was following with Dr. Cohn), hypertension who comes in with complaints of sudden onset of right-sided numbness and weakness which started today. Patient was in a usual state of health until this morning when she went away, started headaches and attempted to take something for headaches when she noticed that she has sudden onset right -sided weakness with numbness. She denied any dizziness or palpitation no nausea or vomiting or diaphoresis. Patient was very anxious and tearful at time of history taking. She denied any chest pain or leg swelling. Vitals in the ED was stable for uncontrolled blood pressure; 195/112. Admitting blood work was unremarkable. CT scan of the head was negative Past Medical History Past Medical History (Chronic Problems): Chronic Problems Chronic atrial fibrillation (Chronic) Allergies Iodinated Contrast- Oral and IV Dye [CONTRASTS] Allergy (Verified 12/19/17 09:01 ) Shortness of breath Surgical History: total knee arthroplasty - bilateral Psychiatric History: No pertinent psych hx [employer] MANAGER History: No pertinent [employer] F[employer] MANAGER history Lives: Alone Smoking Status: Current every day smoker Tobacco Use: Cigarettes Alcohol: Occasional Drugs: None - *Family History Maternal History Items: Heart Disease Paternal History Items: No pertinent history Review of Systems Constitutional: Denies: Chills, Fever, Weight Change HEENT: Denies: Head Aches, Sinus Congestion, Sinus Drainage Cardiovascular: Denies: Chest Pain, Palpitations Respiratory: Denies: Cough, Shortness of breath at rest, Sputum production Gastrointestinal: Denies: Abdominal Pain, Nausea, Vomiting Genitourinary: Denies: Dysuria Musculoskeletal: Denies: Joint Pain, Joint Tenderness Skin: Denies: Rash, Wounds Neurological: Denies: Numbness, Tingling, Focal weakness Psychiatric: Denies: Anxiety, Depression, Homicidal Ideations, Suicidal Ideations Hematologic/ Lymphatic: Denies: Easy Bruising, Easy Bleeding Patient Problems: Active and Suspected Problems Right upper extremity numbness (Acute) - Physical Exam General: Alert, Oriented x3, Cooperative HEENT: Atraumatic, PERRLA, EOMI, Normocephalic Neck: Supple, No JVD, Negative Carotid Bruits Lungs: Clear to auscultation, Normal air movement Cardiovascular: Regular rate, No murmurs Abdomen: Bowel Sounds Present, Soft, Non Tender Extremities: No edema, Capillary Refill Less than 3 Seconds Skin: No rashes, No breakdown Musculoskeletal: No Tenderness to Palpation of Joints or Extremities Neurological: Cranial nerves II-XII grossly intact Psych/Mental Status: Normal Affect, Appropriate Vital Signs Temp Pulse Resp BP Pulse Ox 36.3 C L 70 16 161/98 H 96 12/20/17 09:18 12/20/17 09:18 12/20/17 09:18 12/20/17 09:18 12/20/17 09:18 Oxygen Delivery Method Room Air Weight: 85.2 kg Body Mass Index (BMI) 30.3 Intake and Output for Last 24 Hours 12/18/17 12/19/17 12/20/17 23:59 23:59 23:59 Intake Total 300 / 300 200 / 200 Balance 300 / 300 200 / 200 Laboratory Tests Past 24 Hrs 12/20/17 12/20/17 05:55 05:55 WBC 7.6 RBC 4.51 Hgb 14.7 Hct 43.1 MCV 95.6 MCH 32.6 H MCHC 34.1 RDW 14.3 RDW Differential 48.4 H Plt Count 225 MPV 10.0 Sodium 144 Potassium 3.5 Chloride 111 H Carbon Dioxide 25.0 Anion Gap 8 BUN 13 Creatinine 0.70 Estim Creat Clear Calc 51.81 Est GFR (MDRD) Af Amer 107 Est GFR (MDRD) Non-Af 89 BUN/Creatinine Ratio 18.5 Glucose 88 Calcium 8.4 L Triglycerides 75 Cholesterol 179 LDL Cholesterol 118 VLDL Cholesterol 15 HDL Cholesterol 46 Current Medications Generic Name Dose Route Start Last Admin Trade Name Freq PRN Reason Stop Dose Admin Aspirin 81 mg 12/20/17 08:00 12/20/17 09:15 Aspirin, Baby PO 81 mg DAILY@0800 LORI Administration Atorvastatin Calcium 40 mg 12/19/17 22:00 12/19/17 21:37 Lipitor PO 40 mg QHS LORI Administration Bisacodyl 5 mg 12/19/17 10:56 Dulcolax PO DAILY PRN PRN Constipation Enoxaparin Sodium 40 mg 12/20/17 10:00 Lovenox SC DAILY@1000 LORI Enoxaparin Sodium 90 mg 12/19/17 13:00 12/20/17 09:15 Lovenox SC 90 mg Q12 LORI Administration Magnesium Hydroxide 30 ml 12/19/17 10:56 Milk Of Magnesia PO DAILY PRN Constipation Metoprolol Succinate 12.5 mg 12/20/17 12:00 Toprol Xl (Beta Jean) PO DAILY LORI Nicotine 21 mg 12/20/17 10:00 12/20/17 09:15 Nicoderm Cq (Pbkc) TRANSDERM. Not Given DAILY [facility] Nicotine Polacrilex 2 mg 12/19/17 16:07 Rugby Nicotine (Bkc) PO Q2H PRN PRN Nicotine Craving Ondansetron HCl 4 mg 12/19/17 10:56 Zofran IV Q8H PRN PRN NAUSEA Psyllium Hydrophilic Mucilloid 1 packet 12/19/17 10:56 Metamucil PO DAILY PRN PRN CONSTIPATION Sodium Chloride 5 - 30 ml 12/19/17 12:11 IV UD PRN SALINE FLUSH mri brain reviewed, acute infarct in posterior aspect of left mca distribution. no significant stenosis on mra Assessment/Plan Active and Suspected Problems Right upper extremity numbness (Acute) acute left mca infarct, chronic afib not on anticoag recently per pt preference * restart oac, eliquis * dc tob * monitor bp, rx as op if remains hi * outpt psg
[2017-12-20] MEDS: Metoprolol(XL)Succ 25 MG Tablet 12.5 MG PO (11:40)
--- NOTE | 2017-12-20 11:58 | DCINST_ITS ---
- Discharge Diagnoses Current Active Problems: Current Active and Chronic Problems Right upper extremity numbness (Acute) Chronic atrial fibrillation (Chronic) Reason(s) for Visit for Discharge Instructions: Right upper extremity numbness and weakness You will use the following diet at home:: Cardiac Your food should be the consistency of: Regular Your liquids should be the consistency of: Regular/Thin Discharge Activity: Return to Normal Activity Allergies/Adverse Reactions: Allergies Iodinated Contrast- Oral and IV Dye [CONTRASTS] Allergy (Verified 12/19/17 09:01 ) Shortness of breath Medications to take at Discharge Atorvastatin Calcium [Lipitor] 40 mg PO QHS #30 tab 12/20/17 Metoprolol(XL)Succ [Toprol Xl (Beta Jean)] 12.5 mg PO DAILY #30 tab 12/20/17 Nicotine Polacrilex [Nicotine Gum] 2 mg PO Q2H PRN PRN #60 gum 12/20/17 Nicotine [Nicoderm Cq] 21 mg TRANSDERM. DAILY #30 patch 12/20/17 The following prescriptions were given: Nicotine Polacrilex [Nicotine Gum] 2 mg PO Q2H PRN PRN #60 gum PRN Reason: Nicotine Craving Atorvastatin Calcium [Lipitor] 40 mg PO QHS #30 tab Metoprolol(XL)Succ [Toprol Xl (Beta Jean)] 12.5 mg PO DAILY #30 tab Nicotine [Nicoderm Cq] 21 mg TRANSDERM. DAILY #30 patch Primary Care Physician: Vladimir Gómez MD [Primary Care Provider] - Please follow up with your Primary Care Physician in: within 2 weeks Please Follow Up With: Eddi Keita MD When: within 2 weeks Please Follow Up With: Thiago Mosher MD When: within 2 weeks Proposed Discharge Date: 12/20/17
--- NOTE | 2017-12-20 11:59 | PCM.DC.SUM ---
Discharge Date and Diagnosis Date of Admission: 12/19/17 - Primary Discharge Diagnosis Active and Suspected Problems Right upper extremity numbness (Acute) - Secondary Discharge Diagnosis Chronic Problems Chronic atrial fibrillation (Chronic) Hospital Course and Treatment Imaging Results: Clinical Impression(s) from Imaging Studies Brain CT 12/19/17 09:14 IMPRESSION: Chronic involutional changes of the brain. No acute hemorrhage Paranasal sinusitis Electronically Signed: Abad Templeton MD at 9:48 EDT , Service support , Chest X-Ray 12/19/17 09:28 IMPRESSION: Normal x-ray examination of the chest. Electronically Signed: Derek Paige DO at 9:48 EDT Tel , Service support , Brain MRI 12/19/17 10:56 IMPRESSION: Acute infarct left parietal lobe Electronically Signed: Truman Peralta MD at 19:13 EDT , Service support , Head MRA 12/19/17 10:56 Neck MRA 12/19/17 10:56 Neurology Summary of Care Provided: 67 year old F with PMHx of chronic atrial fibrillation, was on Coumadin but took herself off of it, hypertension who comes in with complaints of sudden onset of right-sided numbness and weakness which started today. 1. Right-sided extremity weakness and numbness secondary to acute left parietal lobe ischemia, neurology consulted, seen on MRI head, MRA head was normal, MRA neck showed moderate stenosis of the proximal right ICA. 2. Chronic A. fib, CHADS-VASC2 score of 3, rate-controlled,on Xarelto, patient to follow-up with cardiology in 2 weeks. 3. Hypertension, blood pressures were not well controlled, was allowing for permissive hypertension, started on metoprolol XL, asked to take her blood pressure every day, follow-up with cardiology and primary care doctor in the outpatient. 4. Nicotine use disorder, recommended to stop smoking, discharged on nicotine replacement Discharge Activity: Return to Normal Activity Home Medications: Medications to take at Discharge Atorvastatin Calcium [Lipitor] 40 mg PO QHS #30 tab 12/20/17 Metoprolol(XL)Succ [Toprol Xl (Beta Jean)] 12.5 mg PO DAILY #30 tab 12/20/17 Nicotine Polacrilex [Nicotine Gum] 2 mg PO Q2H PRN PRN #60 gum 12/20/17 Nicotine [Nicoderm Cq] 21 mg TRANSDERM. DAILY #30 patch 12/20/17 Rivaroxaban [Xarelto] 20 mg PO DAILY #30 tab 12/20/17 Sertraline HCl [Zoloft] 12.5 mg PO DAILY #30 tab 12/20/17 Following Prescrptions Were Given to Patient: Nicotine Polacrilex [Nicotine Gum] 2 mg PO Q2H PRN PRN #60 gum PRN Reason: Nicotine Craving Atorvastatin Calcium [Lipitor] 40 mg PO QHS #30 tab Metoprolol(XL)Succ [Toprol Xl (Beta Jean)] 12.5 mg PO DAILY #30 tab Nicotine [Nicoderm Cq] 21 mg TRANSDERM. DAILY #30 patch Rivaroxaban [Xarelto] 20 mg PO DAILY #30 tab Sertraline HCl [Zoloft] 12.5 mg PO DAILY #30 tab Primary Care Physician: Vladimir Gómez MD [Primary Care Provider] - Please follow up with your Primary Care Physician in: within 2 weeks Please Follow Up With: Eddi Keita MD When: within 2 weeks Please Follow Up With: Tihago Mosher MD When: within 2 weeks Disposition: Home Minutes spent on discharge:: 45 Medical Necessity - Tobacco Use Smoking Status: Current every day smoker Tobacco Use: Cigarettes Meaningful Use Info Meaningful Use Diagnoses (Choose all that apply): Ischemic CVA - CVA Therapy Assessed for PT,OT and/or ST?: Yes - Ischemic Stroke Antithrombotic order at d/c?: Yes Dx of Atrial fib/flutter?: Yes Anticoagulant at discharge?: Yes Statins at discharge?: Yes Primary Dx Acute Ischemic CVA?: Yes IV tPA ordered during stay?: No Reason IV t-PA not ordered: Treatment not Indicated Code Visit Inpatient E&M: 39133 Disch Hosp
--- NOTE | 2017-12-20 13:07 | CASEMGMT ---
TITO met with patient as she just had a Stroke and per staff she has been quite tearful. Patient was alone in her room. She was somewhat open with [facility]IT[facility] and willing to talk. She told SW about her job and that she has been there for 20 years. She said their won't be any problems with her being able to return to work. She really enjoys her job. She plans on trying to quit smoking. TITO told her about the Stroke Support Group and she was open to taking information. Her then walked in. TITO did give patient information on [facility] Stroke Support Group and local counseling agencies. Binta HICKEY MSW
--- NOTE | 2017-12-20 13:45 | CASEMGMT ---
Per Dr. Adkins, pt to be sent home on Xarelto and script e-scribed to [facility]. Call to [facility] and per sarahy, co-pay is $124.01 at this time but she is unable to tell this RN CM if this is all deductible at this time. Advised [facility] that this RN CM would be giving pt a $10 co-pay card to activate and bring with her, voice understanding. Pt updated on all and aware to activate co-pay card and take to pharmacy. Also advised pt that if part of $124 is deductible then she may have to pay that before co-pay card will kick in, voices understanding. Concha RN CM
== END 2017-12-20 14:30 | disposition home or self-care (01) | DRG 65 ==
LOC: ED 10:24 → PCU 10:25
PROVIDERS: Admitting Provider Internal Medicine; Emergency Provider Emergency Medicine; Family Provider Family Medicine; PCP Family Medicine; Visit Provider Internal Medicine
DX: I63.512 Cerebral infarction due to unspecified occlusion or stenosis of left middle cerebral artery (principal); G81.91 Hemiplegia, unspecified affecting right dominant side; I48.2 Chronic atrial fibrillation; I10 Essential (primary) hypertension; F17.210 Nicotine dependence, cigarettes, uncomplicated; Z96.653 Presence of artificial knee joint, bilateral; Z79.01 Long term (current) use of anticoagulants; Z79.899 Other long term (current) drug therapy; Z91.14 Patient's other noncompliance with medication regimen
CPT/HCPCS: 36415; 70450; 70544; 70547; 70551; 71045; 80048; 80061; 82962; 83036; 84484; 85025; 85027; 85610; 85730; 93005; 93306; 97110; 97162; 97165; 99285; 99406; Q9957; A4216

== ENCOUNTER 2020-02-20 14:35 | Inpatient (IN) | payer MEDICARE, SELFPAY ==
[2019-06-22 10:27] VITALS: BMI 30.3
[2020-02-20] VITALS (13 sets, daily range): BP systolic 112–156; BP diastolic 70–129; PULSE 62–84; RESP 15–25; TEMP 36.3–36.8; O2SAT 95–100; BMI 33.1; BMI 31.5
--- NOTE | 2020-02-20 14:41 | EKG12_ITS ---
Test Reason : UNRE Blood Pressure : / mmHG Vent. Rate : 065 BPM Atrial Rate : 394 BPM P-R Int : 000 ms QRS Dur : 074 ms QT Int : 434 ms P-R-T Axes : 000 005 -37 degrees QTc Int : 451 ms Atrial fibrillation T wave abnormality, consider inferior ischemia Abnormal ECG Confirmed by PATEL HIGGINBOTHAM ([id number]), general expeditor GARY BACON ([id number]) on 02/25/2020 2:13:49 PM Referred By: SHANTHI Confirmed By:PATEL HIGGINBOTHAM
--- NOTE | 2020-02-20 14:41 | CT_ITS ---
STUDY: CTA HEAD AND NECK WITH CONTRAST REASON FOR EXAM: Female, 69 years old. STROKE RADIATION DOSAGE (If Supplied By Facility): CTDIvol = ( 34.99 ) mGy, DLP = ( 1483.49 ) mGycm TECHNIQUE: CT angiography was performed with a multi-detector CT scanner. Data acquisition was obtained from the skull base through the vertex following intravenous administration of Isovue 370 100ml. MIP images were reconstructed from the axial data set. Post-processing of the angiographic images was performed, with multiplanar reformation and 3D reconstruction. Individualized dose optimization techniques were used for this CT. COMPARISON: No relevant priors. FINDINGS: Normal bilateral petrous carotid arteries. There is calcified plaque formation of the right cavernous carotid artery, without a cross-sectional luminal stenosis. There is calcified plaque formation of the left cavernous carotid artery, without a cross-sectional luminal stenosis. Normal right A1 segments of the anterior cerebral artery. Normal left A1 segments of the anterior cerebral artery. Normal intact anterior communicating artery (ACOM). Normal bilateral A2 segments of the anterior cerebral arteries. Normal right M1 and M2 segments of the middle cerebral arteries, with a normal M1 bifurcation. Normal left M1 and M2 segments of the middle cerebral arteries, with a normal M1 bifurcation. Normal right posterior communicating artery (PCOM). Normal left posterior communicating artery (PCOM). Normal bilateral vertebral arteries. Normal basilar artery with a normal basilar bifurcation. The visualized bilateral superior cerebellar (SCA) arteries are normal. Normal bilateral P1, P2 and visualized P3 segments of the posterior cerebral arteries. There is no demonstrated aneurysm of the koi of [place]. There is no demonstrated abnormality of the visualized brain. AORTIC ARCH: There is atherosclerotic calcific plaque formation of the aortic arch and great vessels arising from the aortic arch, without a hemodynamically significant stenosis. There is a normal origin of the brachiocephalic, left common carotid, and left subclavian arteries. RIGHT CAROTID ARTERIES: Normal right common carotid artery (CCA). Normal right common carotid bulb. There is moderate atherosclerotic plaque formation of the origin of the right internal carotid artery with an estimated stenosis of 50-69% stenosis. Normal visualized cervical portion of the right internal carotid artery. Normal origin of the right external carotid artery (ECA). LEFT CAROTID ARTERIES: Normal left common carotid artery (CCA). Normal left common carotid bulb. There is mild atherosclerotic plaque formation of the origin of the left internal carotid artery with less than 50% cross sectional diameter stenosis. Normal visualized cervical portion of the left internal carotid artery. Normal origin of the left external carotid artery (ECA). VERTEBRAL ARTERIES: Normal bilateral vertebral arteries. CT/CTA Head AND Neck W/ Contrast IMPRESSION: Calcific plaque at the origins of both the right and left internal carotid arteries causing 50-69% stenosis on the right and less than 50% stenosis on the left. N.B. : The above information has been verbally conveyed by Humberto Palma to Dr Sky DO, on 02/20/2020 14:59:51 (ET). Electronically Signed: Humberto Palma, at 15:02 EDT , Service support ,
--- NOTE | 2020-02-20 14:41 | CM.ED ---
Social Work Responding to stroke alert. No family present. Per EMS daughter was at the house and might be on the way to the hospital. Patient is currently speaking with doctor. Will continue to follow. Aleah ANDRADE, EDELMIRA
--- NOTE | 2020-02-20 14:55 | CM.ED ---
Social Work Collaborating with nursing staff. This social work specialist to call patient daughter. No daughter listed on chart. Attempted to call patient spouse, Barron. Patient daughter, Nitza ([phone]) answered the phone. Per Nitza Barron is also on the way to the hospital. Nitza has young children and is waiting on [id number] and then will come to the hospital. Nitza reports no known medical history of patient other then that patient was to go to a Doctors appointment with Dr. Gómez today. Nitza states to be at the hospital within the next 30min. Aleah ANDRADE, EDELMIRA
[2020-02-20 15:01] LABS: Absolute Lymphocyte Count 1.88 X10^3/uL (0.83-4.51); Absolute Neutrophil Count 4.8 X10^3/uL (2.0-7.7); Basophil# 0.05 X10^3/uL; Basophil% 0.7 % (0-1); Eosinophil# 0.16 X10^3/uL; Eosinophils% 2.1 % (0-5); Hematocrit 37.9 % (37-47); Hemoglobin 12.1 g/dL (12.0-15.0); Lymphocyte # 1.88 X10^3/ul (4.0); Lymphocyte % 24.9 % (19-41); Mean Corp Hgb Conc 31.9 g/dL (32-36); Mean Corpuscular Hgb 31.1 pg (27.0-32.0); Mean Corpuscular Volume 97.4 fL (81-99); Mean Platelet Vol. 10.6 fl (6.2-12.0); Monocyte# 0.66 X10^3/uL; Monocyte% 8.8 % (0-10); NRBC Flagged by Analyzer 0 % (0-5); Neutrophil # 4.75 X10^3/uL (2.7-7.7); Platelet Count 185 K/mm3 (150-450); RBC Distribution Width CV 14.7 % (11.6-14.6); RBC Distribution Width SD 53.1 fl (35.1-43.9); Red Blood Count 3.89 M/mm3 (4.2-5.4); White Blood Count 7.5 K/mm3 (4.4-11.0)
--- NOTE | 2020-02-20 15:02 | ED.DCSUM_ITS ---
- ER Visit Summary Date of Service: 02/20/20 Chief Complaint: Altered mental status History of Present Illness: The patient is a 69 F who presents with altered mental status that began today. Patient was last known to be well was 0930 today. Patient got in her car with her grandchild and turned the car on and the air conditioner was running. The car remained in park. Patient was going to her doctor appointment today. When the patient did not show up for her appointment, the office staff called the patient's daughter who went to check on her and found her unresponsive in the car. Prehospital stroke alert was called. Patient was having garbled speech and generalized weakness. Physical Examination: Vital signs are stable. Patient is afebrile. Patient is confused. Patient does not answer questions. Patient does respond to painful stimuli. Oral mucosa is pink and moist. Neck is supple. Trachea is midline. There is no JVD. Heart was irregularly irregular. Lungs are clear and equal bilaterally. Abdomen is soft. Bowel sounds are normal. There is no apparent tenderness. Pupils are equal, round, and reactive to light bilaterally. Extraocular muscles are grossly intact. There is no appreciable facial weakness. Patient is able to lift her arms against gravity and hold them up. Patient is unable to hold up her lower extremities. Test Results: CT scan of the brain was obtained. There is no acute intracranial abnormality. CTA of the brain was obtained. There is no large vessel occlusion. There is some stenosis of approximately 50-69% on the right and less than 50% on the left. This was interpreted by the radiologist and reviewed by myself. Portable chest x-ray was obtained. There is no acute cardiopulmonary process. This was interpreted by the radiologist and myself. EKG showed atrial fibrillation with a rate of 65. There is some T wave inversion in leads III and aVF. This was unchanged compared to previous EKG dated 12/19/2017. CBC was within normal limits. Basic metabolic profile was essentially within normal limits. PT with INR and PTT were normal. Troponin was normal. Lactate was normal. Carboxyhemoglobin was drawn and was slightly elevated at 5.1. However the patient is a smoker. Urine tox screen is positive for opiates and benzodiazepines. Emergency Department Course and Treatment: Patient was monitored here in the emergency department. Patient began moving her lower extremities. Patient was also attempting to pull out her IVs. Patient was starting to act more agitated but more awake. Patient was still not able to carry on a conversation and understand. Case was discussed with the hospitalist. She will admit the patient to her service to ICU. Family understands and is agreeable with the plan. All questions were answered. Disposition: Admit to ICU Impression: 1. Altered mental status Critical care time: 45 minutes. This was time spent obtaining history from daughter and EMS, performing physical exam, interpreting results, initiating treatment, discussion with consultants, and determining disposition. This note was generated with [employer] dictation software. It may contain incorrect words, spelling, and punctuation that were not noted in review of the chart prior to signing ED Disposition - Plan for ED Patient: Disposition: Acute Care Hospital [facility] Diagnosis: Altered mental status Referrals: Vladimir Gómez MD [Primary Care Provider] -
[2020-02-20 15:05] LABS: International Normalized Ratio 1.3
[2020-02-20 15:06] LABS: Partial Thromboplast Time 30.2 Seconds (24.1-36.2)
--- NOTE | 2020-02-20 15:08 | RAD_ITS ---
STUDY: X-RAY CHEST REASON FOR EXAM: Female, 69 years old. FOUND UNRESPONSIVE TECHNIQUE: Single AP portable view of the chest. COMPARISON: Comparison is made with prior study dated December 19, 2017. FINDINGS: EKG electrodes are seen. The lungs are clear and expanded. There is no demonstrated pleural abnormality. There is mild cardiac enlargement. Normal mediastinum and marsha. Normal visualized pulmonary arteries. There is atherosclerotic calcification of the aortic arch with tortuosity. There are diffuse degenerative changes of the visualized thoracic spine. Normal visualized ribs, clavicles, and shoulders. There is no demonstrated abnormality of the visualized soft tissue structures of the upper abdomen. RAD/Chest 1 View IMPRESSION: Mild cardiomegaly. Electronically Signed: Humberto Palma, at 15:25 EDT , Service support ,
--- NOTE | 2020-02-20 15:19 | ED.RN ---
STROKE SCALE CANCELED, DUE TO NEUROLOGIST AND ED DR THINKING PT'S CONDITION IS NOT STROKE RELATED.
[2020-02-20] MEDS: 0.9% Normal Saline 1,000 ML 1000 ML IV (15:22)
[2020-02-20] MEDS: Naloxone 2 MG/2 ML Syringe IV (15:25)
[2020-02-20 15:31] LABS: Anion Gap 6 (5-15); BUN 21 mg/dL (7-18); BUN/Creat Ratio 29.5 RATIO (10-20); Calcium,Total 7.7 mg/dL (8.5-10.1); Chloride 106 mmol/L (98-107); Creatinine, Serum 0.71 mg/dL (0.55-1.02); EST Glomerular Filtration Rate 87 mL/min (>60); Est Glom Filt Rate - Afr Amer 105 mL/min (>60); Glucose 109 mg/dL (74-106); Potassium 4.3 mmol/L (3.5-5.1); Sodium Level 139 mmol/L (136-145)
[2020-02-20 15:47] LABS: Bacteria 0 SEEN /hpf (None Seen); Mucous, Urine 0 SEEN /hpf (<or=2+); Red Blood Cells-Urine 0 SEEN /hpf (0-5); Squamous Epithelial Cells - UA 0 SEEN /hpf (5-10); White Blood Cells 0 SEEN /hpf (0-5)
[2020-02-20 15:50] LABS: Color, Urine Yellow (Yellow); Glucose, Dipstick Normal (Normal); Ketone-Dipstick Negative (Negative); Leukocyte Esterase-Dipstick Negative /ul (Negative); Nitrite-Dipstick Negative (Negative); Occult Blood-Urine 25 /ul (Negative); Protein-Dipstick 15 mg/dl (Negative); Urine Bilirubin Dipstick Negative (Negative); Urine Clarity Clear (Clear); Urine Urobilinogen Normal (Normal)
[2020-02-20 15:52] LABS: Carboxyhemoglobin Frac (CO) 5.1 % (0.0-1.5)
[2020-02-20 15:53] LABS: Alcohol, Blood (Medical)-Serum < 3.0 mg/dL
[2020-02-20 16:18] LABS: Amphetamine Urine VISTA NEGATIVE (<1000 ng/mL); Barbiturate Urine VISTA NEGATIVE (< 200 ng/mL); Benzodiazepine Urine VISTA POSITIVE (< 200 ng/mL); Cocaine Urine VISTA NEGATIVE (< 300 ng/mL); Ecstacy Urine VISTA NEGATIVE (< 500 ng/mL); Methadone Urine VISTA NEGATIVE (< 300 ng/mL); PCP Urine VISTA NEGATIVE (< 25 ng/mL); THC Urine VISTA NEGATIVE (< 50 ng/mL); Vista UDS pH Range 6
--- NOTE | 2020-02-20 17:15 | NURSING ---
[address] ALTERED MENTAL STATUS
--- NOTE | 2020-02-20 17:27 | HP.PCM_ITS ---
<Harmeet Sloan - Last Filed: 02/20/20 17:27> Problem List (1) Toxic encephalopathy Status: Acute (2) Benzodiazepine abuse Status: Acute (3) Opiate abuse, episodic Status: Acute (4) Nicotine abuse Status: Chronic (5) Chronic atrial fibrillation Status: Chronic History of Present Illness Date of Admission: 02/20/20 Chief Complaint: altered mental status The patient is a 69 year old F with pmhx of stroke, nicotine abuse, chronic Afib, HTN, who presented to the ER with c/o altered mental status. The patient was found by her daughter passed out in her car with the patients grandchild in the car. The car was running but the ac was on and reportedly the child is in ok condition. She was slurring her words and not forming coherent thoughts, not following commands. The daughter than asked for help as the patient's was upstairs and had fallen and was not responsive. A separate squad brought him to the hospital. EMS was called and felt that with her slurring and weakness she may have stroke so she was brought to the ER with a stroke alert called. She had a negative CT brain but her tox screen was + for opiates and benzos. She remains confused and not answering questions. On my exam she lays unresponsive then wakes up and fights with her soft restraints, says incoherent words, then falls back onto the bed asleep. She did not answer any of my questions. Daughter is not present at this time.[] Past Medical History Past Medical History (Chronic Problems): Chronic Problems Chronic atrial fibrillation (Chronic) Nicotine abuse (Chronic) Allergies Iodinated Contrast Media [CONTRASTS] Allergy (Verified 12/19/17 09:01) Shortness of breath Home Medications: Ambulatory Orders Medication Instructions Recorded Atorvastatin Calcium [Lipitor] 40 mg PO QHS 02/20/20 Metoprolol(XL)Succ [Toprol Xl 12.5 mg PO DAILY 02/20/20 (Beta Jean)] Sertraline HCl [Zoloft] 12.5 mg PO DAILY 02/20/20 Warfarin Sodium [Coumadin] 5 mg PO DAILY 02/20/20 Surgical History: total knee arthroplasty Psychiatric History: No pertinent psych hx DENTAL TREATMENT COORDINATOR 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: No pertinent DENTAL TREATMENT COORDINATOR history Lives: Spouse/ Significant Other Smoking Status: Current every day smoker Drugs: - - benzos and opiates - *Family History Maternal History Items: Heart Disease Paternal History Items: No pertinent history Review of Systems Unable to obtain accurate/complete ROS d/t: pt not able to answer questions at this time VTE Information - Inpt Only VTE Present on Admission: No VTE Mechan Device Prophylaxis: None VTE Pharm Prophylaxis ordered?: Yes Patient Problems: Active and Suspected Problems Benzodiazepine abuse (Acute) Opiate abuse, episodic (Acute) Toxic encephalopathy (Acute) Altered mental status (Acute) - Physical Exam Vitals/I&O's: Vital Signs Temp Pulse Resp BP Pulse Ox 97.4 F L 62 20 H 114/76 100 02/20/20 14:38 02/20/20 15:05 02/20/20 15:05 02/20/20 15:05 02/20/20 15:05 Oxygen Flow Rate (L/min) 2 Oxygen Delivery Method Nasal Cannula Weight: 193 lb 1.999 oz Body Mass Index (BMI) 33.1 Finger Stick Blood Glucose 113 Intake and Output for Last 24 Hours 02/18/20 02/19/20 02/20/20 23:59 23:59 23:59 Intake Total 1000 / 1000 Balance 1000 / 1000 General: Confused, Lethargic, Non-Cooperative HEENT: Atraumatic, PERRLA, EOMI, Normocephalic Neck: Supple, No JVD, Negative Carotid Bruits Lungs: Clear to auscultation, Normal air movement Cardiovascular: Regular rate, No murmurs Abdomen: Bowel Sounds Present, Soft, Non Tender Extremities: No edema, Capillary Refill Less than 3 Seconds Skin: No rashes, No breakdown Musculoskeletal: No Tenderness to Palpation of Joints or Extremities Neurological: Cranial nerves II-XII grossly intact Psych/Mental Status: Agitated, Restless Laboratory Results 02/20/20 14:45: WBC 7.5, RBC 3.89 L, Hgb 12.1, Hct 37.9, MCV 97.4, MCH 31.1, MCHC 31.9 L, RDW Std Deviation 53.1 H, RDW Coeff of David 14.7 H, Plt Count 185, MPV 10.6, Immature Gran % (Auto) 0.500, Neut % (Auto) 63.0, Lymph % (Auto) 24.9, [place] % (Auto) 8.8, Eos % (Auto) 2.1, Baso % (Auto) 0.7, Absolute Neuts (auto) 4.8, Absolute Lymphs (auto) 1.88, Nucleated RBC % 0 02/20/20 14:45: PT 16.0 H, INR 1.3, APTT 30.2 02/20/20 14:45: Sodium 139, Potassium 4.3, Chloride 106, Carbon Dioxide 27.0, Anion Gap 6, BUN 21 H, Creatinine 0.71, Estim Creat Clear Calc 46.50, Est GFR (MDRD) Af Amer 105, Est GFR (MDRD) Non-Af 87, BUN/Creatinine Ratio 29.5 H, Glucose 109 H, Calcium 7.7 L, Troponin I < 0.015 02/20/20 15:15: Ethyl Alcohol < 3.0 02/20/20 15:15: Lactic Acid 1.0 02/20/20 15:15: VBG Carboxyhemoglobin 5.1 H 02/20/20 15:30: Urine Opiates Screen POSITIVE H, Urine Methadone Screen NEGATIVE, Ur Barbiturates Screen NEGATIVE, Ur Phencyclidine Scrn NEGATIVE, Ur Amphetamines Screen NEGATIVE, U Methamphetamin-MDMA NEGATIVE, U Benzodiazepines Scrn POSITIVE H, Urine Cocaine Screen NEGATIVE, U Cannabinoids Screen NEGATIVE, Ur Drug Screen Comment 02/20/20 15:30: Urine Color Yellow, Urine Clarity Clear, Urine pH 7.0, Ur Specific [place] 1.010, Urine Protein 15 H, Urine Glucose (UA) Normal, Urine Ketones Negative, Urine Occult Blood 25 H, Urine Nitrite Negative, Urine Bilirubin Negative, Urine Urobilinogen Normal, Ur Leukocyte Esterase Negative, Urine RBC 0 SEEN, Urine WBC 0 SEEN, Ur Squamous Epith Cells 0 SEEN, Urine Bacteria 0 SEEN, Urine Mucus 0 SEEN Current Medications Labetalol HCl (Trandate) 20 mg IV X1 PRN PRN Reason: BLOOD PRESSURE Assessment/Plan All Active Problems Right upper extremity numbness (Acute) Benzodiazepine abuse (Acute) Opiate abuse, episodic (Acute) Toxic encephalopathy (Acute) Altered mental status (Acute) Pre-employment examination (Acute) 1. Toxic encephalopathy 2/2 opiates and benzos - did receive multiple doses of narcan with no improvement. Tox + opiates and benzos. is in similar condition. Suspect accidental overdose. Continue soft restraints. Avoid further sedation with additional benzos at this time. Obtain ABG. Continue IVF and supportive measures. NPO while mentation is poor. CTA head and neck shows 50-69% stenosis R ICA and <50% left ICA. Carboxyhgb is c/w a smokers norm. Trop neg. EKG with chronic Afib. UA neg. CXR with mild cardiomegaly. -Pt dispo'd to the ICU for monitoring overnight. 2. Hx CVA - here with CVA november 2017. CTA as above. 3. Chronic Afib - subtherapeutic INR 4. HTN - stable at this time. 5. Nicotine abuse - patch if desired when more alert The patients current home medication list is not known, need to obtain records from her PCPs office. DVT ppx: lovenox This patient was seen by Harmeet Sloan PA-C under the supervision of Dr. Rivera <Faby Rivera - Last Filed: 02/20/20 20:55> History of Present Illness Date of Admission: 02/20/20 I agree with the above based upon my independent history and physical exam. See below for addendum The patient is a 69 year old F who at baseline is fully functioning and helps with her daughter's children occasionally was brought in the the ED with altered MS as noted above. Acute stroke workup was negative but tox reveals benzodiazepines and opiates in her system which are not, per pharmacy requisition, home medications for her. She was given narcan by the ED with minimal response. Incidentally, her was found in a similar condition but required intubation as he remained unresponsive. Her ABG done in the ED after my evaluation was WNL. Carboxyhemoglobin was assessed and was in range for a smoker, which she is. Her lactate was WNL and her CBC was unimpressive. She was agitated upon my exam and lying sideways in bed yelling I cant move despite moving all 4 extremities. Flumazenil was not given by the ED as there was some question of chronic benzo use and he did not want to cause seizure. Past Medical History Allergies Iodinated Contrast Media [CONTRASTS] Allergy (Verified 12/19/17 09:01) Shortness of breath - Physical Exam Vitals/I&O's: Vital Signs Temp Pulse Resp BP Pulse Ox 98.2 F 84 20 H 112/96 H 97 02/20/20 17:48 02/20/20 17:48 02/20/20 17:48 02/20/20 17:48 02/20/20 17:48 Oxygen Flow Rate (L/min) 2 Oxygen Delivery Method Nasal Cannula Weight: 83.1 kg Body Mass Index (BMI) 33.1 Finger Stick Blood Glucose 113 Intake and Output for Last 24 Hours 02/18/20 02/19/20 02/20/20 23:59 23:59 23:59 Intake Total 1000 / 1000 Balance 1000 / 1000 General: Alert, Well developed, Well nourished, Confused, Non-Cooperative, - - agitated and yelling, pt sideways in bed HEENT: Atraumatic, PERRLA, Normocephalic, EAC Clear Oral: Moist Mucosa, No Gingival or Mucosal Lesions/ Ulcerations, - - fair dentition Neck: Supple, No JVD, Negative Carotid Bruits, Negative Hepatojugular Reflux, No Nodes, No Nuchal Rigidity, Trachea Midline, Thyroid Normal Size and Texture Lungs: Clear to auscultation, Normal air movement, No rhonchi, No wheeze, No rales Cardiovascular: Regular rate, Regular Rhythm, Normal S1, Normal S2, No murmurs, No rub noted, No Gallop Abdomen: Bowel Sounds Present, Soft, Non Tender, Non-Distended, No Hepato- splenomegaly, Obese, No hernias noted Extremities: No clubbing, No cyanosis, No edema, Capillary Refill Less than 3 Seconds, Peripheral Pulses Normal Skin: No rashes, No breakdown Musculoskeletal: No Tenderness to Palpation of Joints or Extremities Lymphatic: No Cervical, Supraclavicular, or Inguinal Adenopathy Neurological: Deep Tendon Reflexes 2+/4 and Symmetrical, Muscle tone normal, - - no clonus, [place] symmetrically but not to command Psych/Mental Status: Agitated, Restless Laboratory Results 02/20/20 14:45: WBC 7.5, RBC 3.89 L, Hgb 12.1, Hct 37.9, MCV 97.4, MCH 31.1, MCHC 31.9 L, RDW Std Deviation 53.1 H, RDW Coeff of David 14.7 H, Plt Count 185, MPV 10.6, Immature Gran % (Auto) 0.500, Neut % (Auto) 63.0, Lymph % (Auto) 24.9, [place] % (Auto) 8.8, Eos % (Auto) 2.1, Baso % (Auto) 0.7, Absolute Neuts (auto) 4.8, Absolute Lymphs (auto) 1.88, Nucleated RBC % 0 02/20/20 14:45: PT 16.0 H, INR 1.3, APTT 30.2 02/20/20 14:45: Sodium 139, Potassium 4.3, Chloride 106, Carbon Dioxide 27.0, Anion Gap 6, BUN 21 H, Creatinine 0.71, Estim Creat Clear Calc 46.50, Est GFR (MDRD) Af Amer 105, Est GFR (MDRD) Non-Af 87, BUN/Creatinine Ratio 29.5 H, Glucose 109 H, Calcium 7.7 L, Troponin I < 0.015 02/20/20 15:15: Ethyl Alcohol < 3.0 02/20/20 15:15: Lactic Acid 1.0 02/20/20 15:15: VBG Carboxyhemoglobin 5.1 H 02/20/20 15:30: Urine Opiates Screen POSITIVE H, Urine Methadone Screen NEGATIVE, Ur Barbiturates Screen NEGATIVE, Ur Phencyclidine Scrn NEGATIVE, Ur Amphetamines Screen NEGATIVE, U Methamphetamin-MDMA NEGATIVE, U Benzodiazepines Scrn POSITIVE H, Urine Cocaine Screen NEGATIVE, U Cannabinoids Screen NEGATIVE, Ur Drug Screen Comment 02/20/20 15:30: Urine Color Yellow, Urine Clarity Clear, Urine pH 7.0, Ur Specific [place] 1.010, Urine Protein 15 H, Urine Glucose (UA) Normal, Urine Ketones Negative, Urine Occult Blood 25 H, Urine Nitrite Negative, Urine Bilirubin Negative, Urine Urobilinogen Normal, Ur Leukocyte Esterase Negative, Urine RBC 0 SEEN, Urine WBC 0 SEEN, Ur Squamous Epith Cells 0 SEEN, Urine Bacteria 0 SEEN, Urine Mucus 0 SEEN 02/20/20 17:51: Specimen Type Cancelled, Sample Site Cancelled, pH Cancelled, Bicarbonate Actual Cancelled, POC Total CO2 Cancelled, Base Excess Cancelled, O2 Saturation Cancelled, O2 % Cancelled, ABG pCO2 Cancelled, ABG pO2 Cancelled, Deepak Test Cancelled, Respiration Rate Cancelled, O2 Delivery Device Cancelled, Liter Flow Cancelled, Minute Volume Cancelled, Vent Mode Cancelled, Tidal Volume Cancelled, POC PEEP Cancelled, POC Pressure Suppt Cancelled, Pressure High Cancelled, Pressure Low Cancelled, Time High Cancelled, Time Low Cancelled, EPAP Cancelled, IPAP Cancelled, Blood Gas Notified Whom Cancelled, Blood Gas Notified Time Cancelled 02/20/20 17:51: Specimen Type ART, Sample Site L RADIAL, pH 7.41, Bicarbonate Actual 23.2, POC Total CO2 24, Base Excess -2, O2 Saturation 98, ABG pCO2 36.8, ABG pO2 97, Deepak Test POS, O2 Delivery Device Nasal Can, Liter Flow 2.0 Current Medications Albuterol/Ipratropium (Duoneb) 3 ml INHALATION Q6H PRN PRN PRN Reason: SOB &/OR WHEEZING Enoxaparin Sodium (Lovenox) 40 mg SC DAILY LORI Sodium Chloride () 1,000 mls @ 100 mls/hr IV .Q10H LORI Sodium Chloride () 250 mls @ 15 mls/hr IV .[id number] PRN PRN Reason: Saline Flush Sodium Chloride () 250 mls @ 15 mls/hr IV .[id number] PRN PRN Reason: Additional IVPB Infusion Ondansetron HCl (Zofran) 4 mg IV Q6H PRN PRN PRN Reason: NAUSEA Sodium Chloride () 10 - 40 ml IV UD PRN PRN Reason: SALINE FLUSH Assessment/Plan Assessment Toxic Encephalopathy 2/2 suspected Opiates and Benzos H/O stroke 2018 Chronic A-fib HPL Depression Nicotine Patch Plan -as above -Admit to ICU with consult for close monitoring -predominantly supportive care at this time -may need precedex for agitation if continues -check CK in am -repeat lab in am -NPO until more awake -IV metoprolol -hold coumadin for now (for a-fib and pt is subtherapeutic on admission) -IVF with D5LR at 100cc/hr -Benzo does not appear chronic--> if MS decreases consider flumazenil Inpatient E&M: [id number] Init Hosp L3
[2020-02-20 18:16] LABS: Base Excess -2 mmol/L (-2 to +2); Bicarbonate 23.2 mmol/L (22-26); PO2 97 mmHG (75-100); SO2 98 % (95-99); Total Carbon Dioxide 24 mmol/L; pCO2 36.8 mmHg (35-45); pH 7.41 (7.35-7.45)
[2020-02-20 18:17] LABS: Allen Test POS; Blood Gas Specimen Type ART; O2 Delivery Device Nasal Can; SITE L RADIAL
--- NOTE | 2020-02-20 18:17 | ED.RN ---
Called report to ELBERT Seo.
--- NOTE | 2020-02-20 18:22 | NURSING ---
NEW DEPT ICU TOXIC ENCEPHALOPATHY
--- NOTE | 2020-02-20 18:24 | NURSING ---
ICU 8
--- NOTE | 2020-02-20 19:50 | CM.ED ---
Social Work LATE ENTRY: This long term care social worker checking in and providing support from 15:20-patient leaving ED to floor on this day. Patient daughter, Nitza arrived at ED. This long term care social worker provided support for Nitza throughout patient stay in the ED. Patient to be admitted to ICU. Nitza aware of current visitor policy. Nitza with no further questions and states to have support from spouse in the community. Aleah Garza MSW, EDELMIRA
--- NOTE | 2020-02-20 20:27 | NURSING ---
unable to complete admission questions and CAM d/t mentation status, RASS -4, will only grimace and sluggishly open eyes to pain, MD aware, stat ABG ordered.
[2020-02-20] MEDS: 0.9% Normal Saline 1,000 ML 100 ML IV (20:47)
--- NOTE | 2020-02-20 21:00 | PCM.HOSP.N ---
Hospitalist Note Called by ICU as pt was minimally responsive with grimace and ouch only to sternal rub. ABG obtained and unremarkable. Will give flumazenil x 1 dose and assess.
[2020-02-20] MEDS: Flumazenil 0.5 MG/5 ML Vial 0.2 MG IV (21:04)
[2020-02-20] MEDS: 0.9% Saline Lock 10 ML Syringe IV (21:04)
--- NOTE | 2020-02-20 21:10 | NURSING ---
history obtained from patient's daughter, Hui.
[2020-02-21] VITALS (20 sets, daily range): BP systolic 136–176; BP diastolic 81–140; PULSE 61–74; RESP 16–24; TEMP 36.4–37.2; O2SAT 95–100
[2020-02-21 04:36] LABS: Allen Test POS; Blood Gas Specimen Type ART; O2 Delivery Device Room Air; SITE L RADIAL
[2020-02-21 04:37] LABS: Base Excess 0 mmol/L (-2 to +2); Bicarbonate 25.3 mmol/L (22-26); PO2 67 mmHG (75-100); SO2 92 % (95-99); Time Given 2045; Total Carbon Dioxide 27 mmol/L; pCO2 43.3 mmHg (35-45); pH 7.38 (7.35-7.45)
[2020-02-21 04:45] LABS: Absolute Lymphocyte Count 2.95 X10^3/uL (0.83-4.51); Basophil# 0.05 X10^3/uL; Basophil% 0.3 % (0-1); Eosinophil# 0.14 X10^3/uL; Hematocrit 47.5 % (37-47); Hemoglobin 15.2 g/dL (12.0-15.0); Lymphocyte # 2.95 X10^3/ul (4.0); Lymphocyte % 20.6 % (19-41); Mean Corpuscular Hgb 31.3 pg (27.0-32.0); Mean Corpuscular Volume 97.7 fL (81-99); Mean Platelet Vol. 10.1 fl (6.2-12.0); Monocyte# 1.17 X10^3/uL; Monocyte% 8.2 % (0-10); NRBC Flagged by Analyzer 0 % (0-5); Neutrophil # 9.99 X10^3/uL (2.7-7.7); Neutrophil % 69.6 % (47-70); Platelet Count 211 K/mm3 (150-450); RBC Distribution Width CV 14.9 % (11.6-14.6); RBC Distribution Width SD 53.7 fl (35.1-43.9); Red Blood Count 4.86 M/mm3 (4.2-5.4); White Blood Count 14.4 K/mm3 (4.4-11.0)
[2020-02-21 04:53] LABS: International Normalized Ratio 1.2; Prothrombin Time (Protime)PT. 14.5 SECONDS (11.7-14.9)
[2020-02-21 05:03] LABS: ALB/GLOB Ratio 0.9 RATIO (0.9-2.4); AST(SGOT) 19 U/L (15-37); Alanine Aminotransfer ALT/SGPT 23 U/L (13-56); Albumin, Serum 3.2 g/dL (3.2-5.0); Alkaline Phosphatase 130 U/L (45-117); Anion Gap 7 (5-15); BUN 14 mg/dL (7-18); BUN/Creat Ratio 22.2 RATIO (10-20); Calcium,Total 8.3 mg/dL (8.5-10.1); Chloride 111 mmol/L (98-107); Creatinine, Serum 0.63 mg/dL (0.55-1.02); EST Glomerular Filtration Rate 100 mL/min (>60); Est Glom Filt Rate - Afr Amer 121 mL/min (>60); Globulin 3.7 g/dL (2.2-4.2); Glucose 84 mg/dL (74-106); Potassium 3.7 mmol/L (3.5-5.1); Protein, Total 6.9 g/dL (6.4-8.2); Sodium Level 144 mmol/L (136-145)
[2020-02-21] MEDS: 0.9% Saline Lock 10 ML Syringe IV (05:10)
[2020-02-21] MEDS: Metoprolol Tartrate 5 MG/5 ML Vial 2.5 MG IV ×2 (05:10→11:28)
--- NOTE | 2020-02-21 06:09 | PCM.CON.CC ---
Reason for Consult Date of Consultation: 02/21/20 Reason for Consultation: Toxic encephalopathy History of Present Illness: The patient is a 69-year-old female, with a history as outlined below, who presented to the emergency department on February 19 in an encephalopathic state following a presumed drug overdose. The patient was apparently found unresponsive in her running vehicle in her driveway as she was preparing to go to a doctor's visit to have her INR checked. The patient did admit to using heroin. She states that she and her regularly use the drug on a nearly daily basis. She stated that she had never experienced any prior overdoses. She does not recall any of the events that transpired yesterday. She does have a daily cigarette smoking history as well. The patient denied any other illicit drug use. On presentation to the emergency department, the patient was noted to be afebrile and hemodynamically stable. Initial laboratory evaluation revealed a normal white blood cell count. INR was subtherapeutic at 1.3. Chemistry profile was unremarkable. Lactate was within normal limits. Troponin was negative. Urine analysis was unremarkable. Toxicology screen was positive for opiates and benzodiazepines. Alcohol level was negative. Over concerns for possible CVA, a CTA head and neck was obtained, which revealed bilateral carotid stenosis. Plain film chest x-ray revealed no acute cardiopulmonary process. The patient was experienced intermittent episodes of somnolence and agitation in the emergency department. Therefore, she was admitted to the medical intensive care unit for overnight observation. Following her arrival to the ICU, nursing staff was concerned over her level of responsiveness. Therefore, it appears that the patient was given a one-time IV dose of flumazenil. This morning, the patient is easily arousable and appropriately interactive. Past Medical History Past Medical History (Chronic Problems): Chronic Problems Chronic atrial fibrillation (Chronic) Nicotine abuse (Chronic) Allergies Iodinated Contrast Media [CONTRASTS] Allergy (Verified 12/19/17 09:01) Shortness of breath Home Medications: Ambulatory Orders Medication Instructions Recorded Atorvastatin Calcium [Lipitor] 40 mg PO QHS 02/20/20 Metoprolol(XL)Succ [Toprol Xl 12.5 mg PO DAILY 02/20/20 (Beta Jean)] Sertraline HCl [Zoloft] 12.5 mg PO DAILY 02/20/20 Warfarin Sodium [Coumadin] 5 mg PO DAILY #1 tab 07/02/20 Surgical History: total knee arthroplasty Psychiatric History: No pertinent psych hx PATIENT ADVOCATE History: No pertinent PATIENT ADVOCATE history Lives: Spouse/ Significant Other Smoking Status: Current every day smoker Drugs: - - benzos and opiates - *Family History Maternal History Items: Heart Disease Paternal History Items: No pertinent history Review of Systems Constitutional: Denies: Chills, Fever, Malaise, Fatigue Eyes: Denies: Blurred vision, Double vision HEENT: Denies: Head Aches, Sinus Congestion, Sinus Drainage Cardiovascular: Denies: Chest Pain, Palpitations Respiratory: Denies: Cough, Shortness of breath at rest, Sputum production Gastrointestinal: Denies: Abdominal Pain, Nausea, Vomiting Genitourinary: Denies: Dysuria Musculoskeletal: Denies: Joint Pain, Joint Tenderness Skin: Denies: Rash, Wounds Neurological: Denies: Numbness, Tingling, Focal weakness Psychiatric: Reports: Anxiety, Depression Hematologic/ Lymphatic: Denies: Easy Bruising, Easy Bleeding Objective: The patient's most recent lab work, culture data and imaging studies have all been personally reviewed. - Physical Exam Vitals/I&O's: Vital Signs Temp Pulse Resp BP Pulse Ox 97.8 F 66 19 H 142/87 H 95 02/21/20 02:00 02/21/20 06:00 02/21/20 06:00 02/21/20 06:00 02/21/20 06:00 Oxygen Flow Rate (L/min) 2 Oxygen Delivery Method Room Air Weight: 182 lb 1.629 oz Body Mass Index (BMI) 33.1 Finger Stick Blood Glucose 113 Intake and Output for Last 24 Hours 02/19/20 02/20/20 02/21/20 23:59 23:59 23:59 Intake Total 1000 / 1000 0 / 0 Output Total 0 / 0 1000 / 1000 Balance 1000 / 1000 -1000 / -1000 General: Alert, Cooperative HEENT: Atraumatic, PERRLA, Normocephalic Oral: Dry Mucosa Neck: Supple, No Nodes, Trachea Midline Lungs: No rhonchi, No wheeze, No rales, Diminished Cardiovascular: Normal S1, Normal S2, Irregular Rate Abdomen: Bowel Sounds Present, Soft, Non Tender Extremities: No clubbing, No cyanosis, No edema Skin: No rashes, No breakdown Musculoskeletal: No Tenderness to Palpation of Joints or Extremities, No Muscle Wasting Lymphatic: No Cervical, Supraclavicular, or Inguinal Adenopathy Neurological: Cranial nerves II-XII grossly intact, Neuro grossly intact Psych/Mental Status: Flat Affect Labs (Last 48 Hours) 02/20/20 02/20/20 02/20/20 14:45 14:45 14:45 WBC 7.5 RBC 3.89 L Hgb 12.1 Hct 37.9 MCV 97.4 MCH 31.1 MCHC 31.9 L RDW Std Deviation 53.1 H RDW Coeff of David 14.7 H Plt Count 185 MPV 10.6 Immature Gran % (Auto) 0.500 Neut % (Auto) 63.0 Lymph % (Auto) 24.9 [place] % (Auto) 8.8 Eos % (Auto) 2.1 Baso % (Auto) 0.7 Absolute Neuts (auto) 4.8 Absolute Lymphs (auto) 1.88 Nucleated RBC % 0 PT 16.0 H INR 1.3 APTT 30.2 Specimen Type Sample Site pH Bicarbonate Actual POC Total CO2 Base Excess O2 Saturation O2 % ABG pCO2 ABG pO2 Deepak Test VBG Carboxyhemoglobin Respiration Rate O2 Delivery Device Liter Flow Minute Volume Vent Mode Tidal Volume POC PEEP POC Pressure Suppt Pressure High Pressure Low Time High Time Low EPAP IPAP Blood Gas Notified Whom Blood Gas Notified Time Sodium 139 Potassium 4.3 Chloride 106 Carbon Dioxide 27.0 Anion Gap 6 BUN 21 H Creatinine 0.71 Estim Creat Clear Calc 46.50 Est GFR (MDRD) Af Amer 105 Est GFR (MDRD) Non-Af 87 BUN/Creatinine Ratio 29.5 H Glucose 109 H Lactic Acid Calcium 7.7 L Total Bilirubin AST ALT Alkaline Phosphatase CK Isoenzymes CK-MM (CK-3) CK-MB (CK-2) CK-BB (CK-1) Troponin I < 0.015 Total Protein Albumin Globulin Albumin/Globulin Ratio Urine Color Urine Clarity Urine pH Ur Specific [place] Urine Protein Urine Glucose (UA) Urine Ketones Urine Occult Blood Urine Nitrite Urine Bilirubin Urine Urobilinogen Ur Leukocyte Esterase Urine RBC Urine WBC Ur Squamous Epith Cells Urine Bacteria Urine Mucus Urine Opiates Screen Urine Methadone Screen Ur Barbiturates Screen Ur Phencyclidine Scrn Ur Amphetamines Screen U Methamphetamin-MDMA U Benzodiazepines Scrn Urine Cocaine Screen U Cannabinoids Screen Ur Drug Screen Comment Ethyl Alcohol 02/20/20 02/20/20 02/20/20 15:15 15:15 15:15 WBC RBC Hgb Hct MCV MCH MCHC RDW Std Deviation RDW Coeff of David Plt Count MPV Immature Gran % (Auto) Neut % (Auto) Lymph % (Auto) [place] % (Auto) Eos % (Auto) Baso % (Auto) Absolute Neuts (auto) Absolute Lymphs (auto) Nucleated RBC % PT INR APTT Specimen Type Sample Site pH Bicarbonate Actual POC Total CO2 Base Excess O2 Saturation O2 % ABG pCO2 ABG pO2 Deepak Test VBG Carboxyhemoglobin 5.1 H Respiration Rate O2 Delivery Device Liter Flow Minute Volume Vent Mode Tidal Volume POC PEEP POC Pressure Suppt Pressure High Pressure Low Time High Time Low EPAP IPAP Blood Gas Notified Whom Blood Gas Notified Time Sodium Potassium Chloride Carbon Dioxide Anion Gap BUN Creatinine Estim Creat Clear Calc Est GFR (MDRD) Af Amer Est GFR (MDRD) Non-Af BUN/Creatinine Ratio Glucose Lactic Acid 1.0 Calcium Total Bilirubin AST ALT Alkaline Phosphatase CK Isoenzymes CK-MM (CK-3) CK-MB (CK-2) CK-BB (CK-1) Troponin I Total Protein Albumin Globulin Albumin/Globulin Ratio Urine Color Urine Clarity Urine pH Ur Specific [place] Urine Protein Urine Glucose (UA) Urine Ketones Urine Occult Blood Urine Nitrite Urine Bilirubin Urine Urobilinogen Ur Leukocyte Esterase Urine RBC Urine WBC Ur Squamous Epith Cells Urine Bacteria Urine Mucus Urine Opiates Screen Urine Methadone Screen Ur Barbiturates Screen Ur Phencyclidine Scrn Ur Amphetamines Screen U Methamphetamin-MDMA U Benzodiazepines Scrn Urine Cocaine Screen U Cannabinoids Screen Ur Drug Screen Comment Ethyl Alcohol < 3.0 02/20/20 02/20/20 02/20/20 15:30 15:30 17:51 WBC RBC Hgb Hct MCV MCH MCHC RDW Std Deviation RDW Coeff of David Plt Count MPV Immature Gran % (Auto) Neut % (Auto) Lymph % (Auto) [place] % (Auto) Eos % (Auto) Baso % (Auto) Absolute Neuts (auto) Absolute Lymphs (auto) Nucleated RBC % PT INR APTT Specimen Type Cancelled Sample Site Cancelled pH Cancelled Bicarbonate Actual Cancelled POC Total CO2 Cancelled Base Excess Cancelled O2 Saturation Cancelled O2 % Cancelled ABG pCO2 Cancelled ABG pO2 Cancelled Deepak Test Cancelled VBG Carboxyhemoglobin Respiration Rate Cancelled O2 Delivery Device Cancelled Liter Flow Cancelled Minute Volume Cancelled Vent Mode Cancelled Tidal Volume Cancelled POC PEEP Cancelled POC Pressure Suppt Cancelled Pressure High Cancelled Pressure Low Cancelled Time High Cancelled Time Low Cancelled EPAP Cancelled IPAP Cancelled Blood Gas Notified Whom Cancelled Blood Gas Notified Time Cancell Sodium Potassium Chloride Carbon Dioxide Anion Gap BUN Creatinine Estim Creat Clear Calc Est GFR (MDRD) Af Amer Est GFR (MDRD) Non-Af BUN/Creatinine Ratio Glucose Lactic Acid Calcium Total Bilirubin AST ALT Alkaline Phosphatase CK Isoenzymes CK-MM (CK-3) CK-MB (CK-2) CK-BB (CK-1) Troponin I Total Protein Albumin Globulin Albumin/Globulin Ratio Urine Color Yellow Urine Clarity Clear Urine pH 7.0 Ur Specific [place] 1.010 Urine Protein 15 H Urine Glucose (UA) Normal Urine Ketones Negative Urine Occult Blood 25 H Urine Nitrite Negative Urine Bilirubin Negative Urine Urobilinogen Normal Ur Leukocyte Esterase Negative Urine RBC 0 SEEN Urine WBC 0 SEEN Ur Squamous Epith Cells 0 SEEN Urine Bacteria 0 SEEN Urine Mucus 0 SEEN Urine Opiates Screen POSITIVE H Urine Methadone Screen NEGATIVE Ur Barbiturates Screen NEGATIVE Ur Phencyclidine Scrn NEGATIVE Ur Amphetamines Screen NEGATIVE U Methamphetamin-MDMA NEGATIVE U Benzodiazepines Scrn POSITIVE H Urine Cocaine Screen NEGATIVE U Cannabinoids Screen NEGATIVE Ur Drug Screen Comment Ethyl Alcohol 02/20/20 02/20/20 02/20/20 17:51 20:45 21:40 WBC RBC Hgb Hct MCV MCH MCHC RDW Std Deviation RDW Coeff of David Plt Count MPV Immature Gran % (Auto) Neut % (Auto) Lymph % (Auto) [place] % (Auto) Eos % (Auto) Baso % (Auto) Absolute Neuts (auto) Absolute Lymphs (auto) Nucleated RBC % PT INR APTT Specimen Type ART ART Sample Site L RADIAL L RADIAL pH 7.41 7.38 Bicarbonate Actual 23.2 25.3 POC Total CO2 24 27 Base Excess -2 0 O2 Saturation 98 92 L O2 % ABG pCO2 36.8 43.3 ABG pO2 97 67 L Deepak Test POS POS VBG Carboxyhemoglobin Respiration Rate O2 Delivery Device Nasal Can Room Air Liter Flow 2.0 Minute Volume Vent Mode Tidal Volume POC PEEP POC Pressure Suppt Pressure High Pressure Low Time High Time Low EPAP IPAP Blood Gas Notified Whom TERESA ARSHAD Blood Gas Notified Time 2044 Sodium Potassium Chloride Carbon Dioxide Anion Gap BUN Creatinine Estim Creat Clear Calc Est GFR (MDRD) Af Amer Est GFR (MDRD) Non-Af BUN/Creatinine Ratio Glucose Lactic Acid Calcium Total Bilirubin AST ALT Alkaline Phosphatase CK Isoenzymes Pending CK-MM (CK-3) Pending CK-MB (CK-2) Pending CK-BB (CK-1) Pending Troponin I Total Protein Albumin Globulin Albumin/Globulin Ratio Urine Color Urine Clarity Urine pH Ur Specific [place] Urine Protein Urine Glucose (UA) Urine Ketones Urine Occult Blood Urine Nitrite Urine Bilirubin Urine Urobilinogen Ur Leukocyte Esterase Urine RBC Urine WBC Ur Squamous Epith Cells Urine Bacteria Urine Mucus Urine Opiates Screen Urine Methadone Screen Ur Barbiturates Screen Ur Phencyclidine Scrn Ur Amphetamines Screen U Methamphetamin-MDMA U Benzodiazepines Scrn Urine Cocaine Screen U Cannabinoids Screen Ur Drug Screen Comment Ethyl Alcohol 02/21/20 02/21/20 02/21/20 04:30 04:30 04:30 WBC 14.4 H RBC 4.86 Hgb 15.2 H Hct 47.5 H MCV 97.7 MCH 31.3 MCHC 32.0 RDW Std Deviation 53.7 H RDW Coeff of David 14.9 H Plt Count 211 MPV 10.1 Immature Gran % (Auto) 0.300 Neut % (Auto) 69.6 Lymph % (Auto) 20.6 [place] % (Auto) 8.2 Eos % (Auto) 1.0 Baso % (Auto) 0.3 Absolute Neuts (auto) 10.0 H Absolute Lymphs (auto) 2.95 Nucleated RBC % 0 PT 14.5 INR 1.2 APTT Specimen Type Sample Site pH Bicarbonate Actual POC Total CO2 Base Excess O2 Saturation O2 % ABG pCO2 ABG pO2 Deepak Test VBG Carboxyhemoglobin Respiration Rate O2 Delivery Device Liter Flow Minute Volume Vent Mode Tidal Volume POC PEEP POC Pressure Suppt Pressure High Pressure Low Time High Time Low EPAP IPAP Blood Gas Notified Whom Blood Gas Notified Time Sodium 144 Potassium 3.7 Chloride 111 H Carbon Dioxide 26.0 Anion Gap 7 BUN 14 Creatinine 0.63 Estim Creat Clear Calc 46.50 Est GFR (MDRD) Af Amer 121 Est GFR (MDRD) Non-Af 100 BUN/Creatinine Ratio 22.2 H Glucose 84 Lactic Acid Calcium 8.3 L Total Bilirubin 0.90 AST 19 ALT 23 Alkaline Phosphatase 130 H CK Isoenzymes CK-MM (CK-3) CK-MB (CK-2) CK-BB (CK-1) Troponin I Total Protein 6.9 Albumin 3.2 Globulin 3.7 Albumin/Globulin Ratio 0.9 Urine Color Urine Clarity Urine pH Ur Specific [place] Urine Protein Urine Glucose (UA) Urine Ketones Urine Occult Blood Urine Nitrite Urine Bilirubin Urine Urobilinogen Ur Leukocyte Esterase Urine RBC Urine WBC Ur Squamous Epith Cells Urine Bacteria Urine Mucus Urine Opiates Screen Urine Methadone Screen Ur Barbiturates Screen Ur Phencyclidine Scrn Ur Amphetamines Screen U Methamphetamin-MDMA U Benzodiazepines Scrn Urine Cocaine Screen U Cannabinoids Screen Ur Drug Screen Comment Ethyl Alcohol Clinical Impression(s) from Imaging Studies Head/Neck CTA 02/20/20 14:41 IMPRESSION: Calcific plaque at the origins of both the right and left internal carotid arteries causing 50-69% stenosis on the right and less than 50% stenosis on the left. N.B. : The above information has been verbally conveyed by Humberto Palma to Dr Sky DO, on 02/20/2020 14:59:51 (ET). Electronically Signed: Humberto Palma, at 15:02 EDT , Service support , ADDENDUM: 02/20/20 1509 IMPRESSION: Calcific plaque at the origins of both the right and left internal carotid arteries causing 50-69% stenosis on the right and less than 50% stenosis on the left. N.B. : The above information has been verbally conveyed by Humberto Palma to Dr Sky DO, on 02/20/2020 14:59:51 (ET). Electronically Signed: Humberto Palma, at 15:02 EDT , Service support , Chest X-Ray 02/20/20 15:08 IMPRESSION: Mild cardiomegaly. Electronically Signed: Humberto Palma, at 15:25 EDT , Service support , Current Medications Albuterol/Ipratropium (Duoneb) 3 ml INHALATION Q6H PRN PRN PRN Reason: SOB &/OR WHEEZING Enoxaparin Sodium (Lovenox) 40 mg SC DAILY [facility] Sodium Chloride () 1,000 mls @ 100 mls/hr IV .Q10H LORI Last Admin: 02/20/20 20:47 Dose: 100 mls/hr Documented by: Sodium Chloride () 250 mls @ 15 mls/hr IV .[id number] PRN PRN Reason: Saline Flush Sodium Chloride () 250 mls @ 15 mls/hr IV .[id number] PRN PRN Reason: Additional IVPB Infusion Metoprolol Tartrate (Lopressor (Beta Jean)) 2.5 mg IV Q6 LORI Last Admin: 02/21/20 05:10 Dose: 2.5 mg Documented by: Ondansetron HCl (Zofran) 4 mg IV Q6H PRN PRN PRN Reason: NAUSEA Sodium Chloride () 10 - 40 ml IV UD PRN PRN Reason: SALINE FLUSH Last Admin: 02/21/20 05:10 Dose: 40 ml Documented by: Assessment/Plan RECOMMENDATIONS: 1. Stop continuous supplemental IV fluids. 2. Resume home Coumadin dose. 3. Encourage incentive spirometer use and mobilize patient as tolerated. 4. The patient is medically stable for transfer out of the intensive care unit. IMPRESSIONS: 1. Acute toxic encephalopathy Secondary to heroin overdose. The patient was able to protect her airway and she subsequently did not require intubation. Her mentation has improved this morning. She was able to converse with me appropriately. 2. History of polysubstance dependency/tobacco dependency The patient reports a longstanding history of heroin dependency and does smoke cigarettes on a daily basis as well. I personally spent 4 minutes discussing the deleterious effects of continued tobacco use with the patient, including modalities which could be utilized to achieve a smoke-free lifestyle. The patient will need to be monitored closely for any signs of potential opiate withdrawal. 3. History of atrial fibrillation/hyperlipidemia/depression Complicates care, management, recovery and prognosis. Continue baseline home medications. The patient's Coumadin will need to be restarted as well. This note was generated with Dragon dictation software. It may contain incorrect words, spelling, and punctuation that were not noted in checking the note before signing. Inpatient E&M: 84807 Init Hosp L3 - Behavior Interventions Behavior Intervention: 71017 Smoking Cessation 3-10 min
--- NOTE | 2020-02-21 06:52 | NURSING ---
Hui, daughter, called unit and update provided.
[2020-02-21] MEDS: Enoxaparin 40 MG/0.4 ML Syringe SC (11:28)
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
--- NOTE | 2020-02-21 14:48 | DCINST_ITS ---
- Discharge Diagnoses Current Active Problems: Current Active and Chronic Problems Benzodiazepine abuse (Acute) Opiate abuse, episodic (Acute) Nicotine abuse (Chronic) Toxic encephalopathy (Acute) Altered mental status (Acute) You will use the following diet at home:: No restrictions Your food should be the consistency of: Regular Your liquids should be the consistency of: Regular/Thin Discharge Activity: Return to Normal Activity Weight Bearing Status: Full weight bearing Additional Instructions: Please consider counseling for narcotic addiction Allergies/Adverse Reactions: Allergies Iodinated Contrast Media [CONTRASTS] Allergy (Verified 12/19/17 09:01) Shortness of breath Medications to take at Discharge RX: Atorvastatin Calcium [Lipitor] 40 mg PO QHS 02/20/20 RX: Metoprolol(XL)Succ [Toprol Xl (Beta Jean)] 12.5 mg PO DAILY 02/20/20 Sertraline HCl [Zoloft] 12.5 mg PO DAILY 02/20/20 RX: Warfarin Sodium [Coumadin] 5 mg PO DAILY #1 tab 02/21/20 The following prescriptions were given: RX: Warfarin Sodium [Coumadin] 5 mg PO DAILY #1 tab Primary Care Physician: Vladimir Gómez MD [Primary Care Provider] - Please follow up with your Primary Care Physician in: next Tuesday-get INR checked Test Results: Test results from this visit will be discussed in further detail at your follow- up appointment, if applicable.
--- NOTE | 2020-02-21 17:36 | DS.PCM_ITS ---
Discharge Date and Diagnosis Date of Admission: 02/20/20 Date of Discharge: 02/21/20 - Primary Discharge Diagnosis Acute Problems: #1 narcotic overdose-nonintentional #2 toxic encephalopathy secondary to narcotic overdose #3 narcotic addiction #4 chronic atrial fibrillation #5 cerebrovascular disease #6 chronic Coumadin usage secondary to cerebrovascular disease and chronic atrial fibrillation - Secondary Discharge Diagnosis Chronic Problems: Chronic Problems Chronic atrial fibrillation (Chronic) Nicotine abuse (Chronic) Hospital Course and Treatment Operations: None Procedures: None Summary of Care Provided: The patient is a 69 year old F seen in the emergency room at [facility] after being found in her car with her grandchild with the car and air conditioner running in her driveway. Patient was found by her daughter after the patient did not show up for her doctor's appointment today. Evaluation s howed the patient to be confused with garbled speech and generalized weakness, CT of the brain was obtained that showed no acute intracranial abnormality, CTA of the brain and neck was obtained which showed no major occlusive disease. EKG showed atrial fibrillation at a rate of 65. Tox screen was positive for opiates and benzodiazepines. Patient was monitored in the emergency room and she became more awake but was agitated, she was still not able to carry on a conversation due to garbled speech, patient was admitted to the ICU with toxic encephalopathy secondary to narcotic abuse, the following day the patient was more alert in the ICU, she was examined by critical care stated the patient admitted to using heroin. Patient's was evidently found in their home at the same time the patient was found in her driveway and he was unresponsive sitting at the kitchen table. He was brought to the emergency room at [facility] and intubated and was subsequently extubated today in the ICU. Patient was somnolent for most of 02/21/2020, she was more alert in the afternoon however and did talk with protective services social worker and narcotic rehab was discussed with the patient but she stated that she did not feel she needed it. I also talked to the patient about her narcotic abuse but she stated that she did not want to follow-up as an outpatient with any rehab program. On 02/21/2020, patient was seen and examined: On examination she appeared in good health and spirits, she does not appear to be in any distress. Vital signs as documented. Skin warm and dry and without overt rashes. Neck without JVD, thyroid appears normal, trachea is midline, neck is supple. Lungs clear, normal air movement was noted. Heart exam notable for regular rhythm, normal sounds and absence of murmurs, rubs or gallops. Abdomen unremarkable and without evidence of organomegaly, masses, or abdominal aortic enlargement, bowel sounds are present in all 4 quadrants, no abdominal tenderness was noted. Extremities nonedematous, no cyanosis was noted, no clubbing was noted. Neuro: Cranial nerves II through XII are grossly intact, no focal motor deficits were noted, sensation to light touch and pinprick is intact, motor exam 5/5 throughout. Psych: Patient is alert and oriented x3, she does not appear anxious or depressed, she does not appear agitated. Patient was felt to be stable for discharge home on 02/21/2020. - Physical Exam Vitals/I&O's: Vital Signs Temp Pulse Resp BP Pulse Ox 97.8 F 65 18 151/88 H 96 02/21/20 15:30 02/21/20 15:30 02/21/20 15:30 02/21/20 15:30 02/21/20 15:30 Oxygen Flow Rate (L/min) 2 Oxygen Delivery Method Room Air Weight: 82.6 kg Body Mass Index (BMI) 33.1 Finger Stick Blood Glucose 113 Intake and Output for Last 24 Hours 02/19/20 02/20/20 02/21/20 23:59 23:59 23:59 Intake Total 1000 / 1000 1000 / 1000 Output Total 0 / 0 2049 / 2049 Balance 1000 / 1000 -1050 / -1050 Laboratory Results 02/20/20 17:51: Specimen Type Cancelled, Sample Site Cancelled, pH Cancelled, Bicarbonate Actual Cancelled, POC Total CO2 Cancelled, Base Excess Cancelled, O2 Saturation Cancelled, O2 % Cancelled, ABG pCO2 Cancelled, ABG pO2 Cancelled, Deepak Test Cancelled, Respiration Rate Cancelled, O2 Delivery Device Cancelled, Liter Flow Cancelled, Minute Volume Cancelled, Vent Mode Cancelled, Tidal Volume Cancelled, POC PEEP Cancelled, POC Pressure Suppt Cancelled, Pressure High Cancelled, Pressure Low Cancelled, Time High Cancelled, Time Low Cancelled, EPAP Cancelled, IPAP Cancelled, Blood Gas Notified Whom Cancelled, Blood Gas Notified Time Cancelled 02/20/20 17:51: Specimen Type ART, Sample Site L RADIAL, pH 7.41, Bicarbonate Actual 23.2, POC Total CO2 24, Base Excess -2, O2 Saturation 98, ABG pCO2 36.8, ABG pO2 97, Deepak Test POS, O2 Delivery Device Nasal Can, Liter Flow 2.0 02/20/20 20:45: Specimen Type ART, Sample Site L RADIAL, pH 7.38, Bicarbonate Actual 25.3, POC Total CO2 27, Base Excess 0, O2 Saturation 92 L, ABG pCO2 43.3, ABG pO2 67 L, Deepak Test POS, O2 Delivery Device Room Air, Blood Gas Notified Whom TERESA ARSHAD, Blood Gas Notified Time 204402/20/20 21:40: CK Isoenzymes Pending, CK-MM (CK-3) Pending, CK-MB (CK-2) Pending, CK-BB (CK-1) Pending 02/21/20 04:30: WBC 14.4 H, RBC 4.86, Hgb 15.2 H, Hct 47.5 H, MCV 97.7, MCH 31.3, MCHC 32.0, RDW Std Deviation 53.7 H, RDW Coeff of David 14.9 H, Plt Count 211, MPV 10.1, Immature Gran % (Auto) 0.300, Neut % (Auto) 69.6, Lymph % (Auto) 20.6, Avery % (Auto) 8.2, Eos % (Auto) 1.0, Baso % (Auto) 0.3, Absolute Neuts (auto) 10.0 H, Absolute Lymphs (auto) 2.95, Nucleated RBC % 0 02/21/20 04:30: PT 14.5, INR 1.2 02/21/20 04:30: Sodium 144, Potassium 3.7, Chloride 111 H, Carbon Dioxide 26.0, Anion Gap 7, BUN 14, Creatinine 0.63, Estim Creat Clear Calc 46.50, Est GFR (MDRD) Af Amer 121, Est GFR (MDRD) Non-Af 100, BUN/Creatinine Ratio 22.2 H, Glucose 84, Calcium 8.3 L, Total Bilirubin 0.90, AST 19, ALT 23, Alkaline Phosphatase 130 H, Total Protein 6.9, Albumin 3.2, Globulin 3.7, Albumin/Globulin Ratio 0.9 Discharge Activity: Return to Normal Activity Weight Bearing Status: Full weight bearing Home Medications: Medications to take at Discharge Atorvastatin Calcium [Lipitor] 40 mg PO QHS 02/20/20 Metoprolol(XL)Succ [Toprol Xl (Beta Jean)] 12.5 mg PO DAILY 02/20/20 Sertraline HCl [Zoloft] 12.5 mg PO DAILY 02/20/20 Warfarin Sodium [Coumadin] 5 mg PO DAILY #1 tab 02/21/20 Following Prescrptions Were Given to Patient: Warfarin Sodium [Coumadin] 5 mg PO DAILY #1 tab Primary Care Physician: Vladimir Gómez MD [Primary Care Provider] - Please follow up with your Primary Care Physician in: next Tuesday-get INR checked Disposition: Home Minutes spent on discharge:: 31 Patient Condition:: Stable Medical Necessity - Tobacco Use Smoking Status: Current every day smoker Meaningful Use Info Meaningful Use Diagnoses (Choose all that apply): None applicable Inpatient E&M: 13139 Disch Hosp
[2020-02-23 12:07] LABS: Creatine Kinase MB 0 % (0-3); Creatine Kinase MM 100 % (97-100); Macro I 0 % (Not Observed); Macro II 0 % (Not Observed)
[2020-02-23 14:35] LABS: Creatine Kinase,Total,Serum 58 U/L (32-182)
[2020-02-23 14:36] LABS: Creatine Kinase BB 0 % (0)
== END 2020-02-21 16:35 | disposition home or self-care (01) | DRG 917 ==
LOC: ED 17:28 → ICU 18:12
PROVIDERS: Internal Medicine; Physician Assistant; Admitting Provider Internal Medicine; Emergency Provider Emergency Medicine; PCP Family Medicine; Visit Provider Internal Medicine
DX: T40.1X1A Poisoning by heroin, accidental (unintentional), initial encounter (principal); G92 Toxic encephalopathy; F11.20 Opioid dependence, uncomplicated; I48.20 Chronic atrial fibrillation, unspecified; T42.4X1A Poisoning by benzodiazepines, accidental (unintentional), initial encounter; F13.10 Sedative, hypnotic or anxiolytic abuse, uncomplicated; Y92.810 Car as the place of occurrence of the external cause; R79.1 Abnormal coagulation profile; I10 Essential (primary) hypertension; E78.5 Hyperlipidemia, unspecified; F32.9 Major depressive disorder, single episode, unspecified; F17.210 Nicotine dependence, cigarettes, uncomplicated; Z79.01 Long term (current) use of anticoagulants; Z79.899 Other long term (current) drug therapy; Z86.73 Personal history of transient ischemic attack (TIA), and cerebral infarction without residual deficits
CPT/HCPCS: 36600; 70496; 70498; 71045; 80048; 80053; 80307; 80320; 81001; 82375; 82550; 82552; 82803; 83605; 84484; 85025; 85610; 85730; 93005; 97162; 99285; J7030; Q9967; A4216; G0480